=== PATIENT | female | born 1950 | race African-American/Black ===

== ENCOUNTER 2017-10-03 19:05 | Emergency (ER) | payer OTHER ==
--- NOTE | 2017-10-03 20:39 | PDOC ---
History of Present Illness - General History Source: Patient, Family Exam Limitations: No Limitations - History of Present Illness Initial Comments: 10/03/17 20:41 The patient is a 67 year old female with history of hypertension, hyperlipidemia , thyroid disease, brought into the ED by her nephew after ingesting a marijuana brownie this morning. Nephew at bedside reports he was given the brownie and the patient got into them. The patient subsequently became altered, prompting the nephew to bring her to the ED. No behavioral changes prior to marijuana consumption. No alcohol consumption tonight. She denies any physical complaints. <Evita Foster - Last Filed: 10/03/17 21:08> <Teri Gimenez - Last Filed: 10/04/17 00:22> - General Chief Complaint: Substance Abuse Stated Complaint: SUBSTANCE ABUSE Time Seen by Provider: 10/03/17 20:25 Past History <Evita Foster - Last Filed: 10/03/17 21:08> - Past Medical History Anemia: No Asthma: No Cancer: No Cardiac Disorders: No CVA: Yes (TIA 2+ YEARS AGO, residual imbalance) COPD: No CHF: No Dementia: No Diabetes: Yes GI Disorders: No Disorders: Yes (HEMATURIA - SUBSIDED ( WEEKS AGO)) HTN: Yes Hypercholesterolemia: Yes Liver Disease: No Seizures: No Thyroid Disease: Yes - Immunization History Immunization Up to Date: No - Suicide/Smoking/Psychosocial Hx Smoking History: Never smoked Have you smoked in the past 12 months: No Information on smoking cessation initiated: No Hx Alcohol Use: No Drug/Substance Use Hx: Yes (marijuana) Substance Use Type: None Hx Substance Use Treatment: No <Teri Gimenez - Last Filed: 10/04/17 00:22> - Past Medical History Allergies/Adverse Reactions: Allergies Allergy/AdvReac Type Severity Reaction Status Date / Time oxycodone Allergy Unknown Itching Verified 10/03/17 20:27 Home Medications: Ambulatory Orders Aspirin [ASA -] 81 mg PO DAILY 02/23/16 Atorvastatin Ca [Lipitor] 40 mg PO HS 02/23/16 Levothyroxine [Synthroid -] 25 mcg PO DAILY 02/23/16 Telmisartan/Hydrochlorothiazid [Telmisartan-Hctz 40-12.5 mg Tb] 0.5 tab PO DAILY 02/23/16 Meclizine HCl 25 mg PO BID PRN 03/17/16 Ciprofloxacin [Cipro -] 250 mg PO BID #14 tablet 03/19/16 Zolpidem Tartrate [Ambien] 10 mg PO HS 10/03/17 Cephalexin Monohydrate [Keflex -] 500 mg PO BID #14 capsule 10/04/17 Review of Systems - Review of Systems Able to Perform ROS?: Yes Comments:: 10/03/17 21:08 GENERAL/CONSTITUTIONAL: No fever or chills. No weakness. HEAD, EYES, EARS, NOSE AND THROAT: No change in vision. No ear pain or discharge. No sore throat. GASTROINTESTINAL: No nausea, vomiting, diarrhea or constipation. GENITOURINARY: No dysuria, frequency, or change in urination. CARDIOVASCULAR: No chest pain or shortness of breath. RESPIRATORY: No cough, wheezing, or hemoptysis. MUSCULOSKELETAL: No joint or muscle swelling or pain. No neck or back pain. SKIN: No rash NEUROLOGIC: +AMS. No headache, vertigo, loss of consciousness, or change in strength/sensation. ENDOCRINE: No increased thirst. No abnormal weight change. HEMATOLOGIC/LYMPHATIC: No anemia, easy bleeding, or history of blood clots. ALLERGIC/IMMUNOLOGIC: No hives or skin allergy. <Evita Foster - Last Filed: 10/03/17 21:08> *Physical Exam - Vital Signs Last Vital Signs Temp Pulse Resp BP Pulse Ox 97.6 F 97 H 18 150/84 96 10/03/17 20:22 10/03/17 20:22 10/03/17 20:22 10/03/17 20:22 10/03/17 20:22 - Physical Exam Comments: 10/03/17 21:08 Constitutional: Awake, alert, oriented. No acute distress. Head: Normocephalic. Atraumatic Eyes: PERRL. EOMI. Conjunctivae are not pale. ENT: Mucous membranes are moist and intact. Posterior pharynx without exudates or erythema. Uvula midline. Neck: Supple. Full ROM. No lymphadenopathy. Cardiovascular: Regular rate. Regular rhythm. S1, S2 regular. Distal pulses are 2+ and symmetric. Pulmonary/Chest: No evidence of respiratory distress. Clear to auscultation bilaterally No wheezing, rales or rhonchi. Abdominal: Soft and non-distended. There is no tenderness. No rebound, guarding or rigidity. No organomegaly. No palpable masses. Good bowel sounds. Back: No CVA tenderness. Musculoskeletal: No edema. No cyanosis. No clubbing. Full range of motion in all extremities. Nocalf tenderness. Radial/pedal pulses are intact and 2+ bilaterally Skin: Skin is warm and dry. No petechiae. No purpura. Neurological: Alert and oriented to person, place, and time. Cranial nerves II -XII are grossly intact. Normal speech. Strength is grossly symmetric. No sensory deficits. Psychiatric: Good eye contact. Normal interaction, affect and behavior. <Evita Foster - Last Filed: 10/03/17 21:08> - Vital Signs Last Vital Signs Temp Pulse Resp BP Pulse Ox 97.6 F 97 H 18 150/84 96 10/03/17 20:22 10/03/17 20:22 10/03/17 20:22 10/03/17 20:22 10/03/17 20:22 <Teri Gimenez - Last Filed: 10/04/17 00:22> ED Treatment Course - LABORATORY CBC & Chemistry Diagram: 10/03/17 22:00 10/03/17 22:00 <Teri Gimenez - Last Filed: 10/04/17 00:22> Medical Decision Making - Medical Decision Making 10/03/17 20:38 67yo female with ingestion of brownie with marijuana in it -dizziness -labs ekg ivf hydration -uds -etoh -monitor and reassess 10/03/17 23:37 pt denies dysuria, no recent f/c. feeling better. pt with bacteria in urine and elevated wbc, will give abx. pt agrees with the plan 10/04/17 00:18 pt drinking water. receiving iv abx and will d/c home on abx pt tolerated po stable for d/c to home. <Teri Gimenez - Last Filed: 10/04/17 00:22> *DC/Admit/Observation/Transfer - Attestations Scribe Attestion: 10/03/17 21:09 Documentation prepared by Evita Foster, acting as medical clerical assistant for Teri Gimenez DO. <Evita Foster Last Filed: 10/03/17 21:08> - Discharge Dispostion Admit: No - Attestations Physician Attestion: 10/04/17 00:22 I, Dr. Teri Gimenez DO, attest that this document has been prepared under my direction and personally reviewed by me in its entirety. I further attest, that it accurately reflects all work, treatment, procedures and medical decision -making performed by me. <Teri Gimenez - Last Filed: 10/04/17 00:22> Diagnosis at time of Disposition: Marijuana use, UTI (urinary tract infection), Dehydration, Hyperglycemia - Discharge Dispostion Disposition: HOME Condition at time of disposition: Stable - Prescriptions Prescriptions: Cephalexin Monohydrate [Keflex -] 500 mg PO BID #14 capsule - Referrals Referrals: Saleem Wilkins MD [Primary Care Provider] - - Patient Instructions Printed Discharge Instructions: DI for Urinary Tract Infection (UTI), DI for Hyperglycemia -- Adult, DI for Dehydration -- Adult, DI for Adverse Drug Reaction -- Other Additional Instructions: Please avoid marijuana. Please take all antibiotics as prescribed. Please drink plenty of fluids and monitor your glucose at home. Please make an appointment to follow up with your PMD in 2-3 days - Post Discharge Activity
[2017-10-03 21:25] VITALS: BP 150/84; PULSE 97; TEMP 97.6; BMI 24.6
[2017-10-03 22:21] LABS: BASOPHIL 0.5 % (0-2.0); MCH 26.3 pg (25.7-33.7); MCHC 33.7 g/dl (32.0-36.0); MEAN PLT VOLUME 9.2 fl (7.5-11.1); NEUTROPHILS 85.6 % (42.8-82.8); PLATELET COUNT 357 K/MM3 (134-434); RDW 16.9 % (11.6-15.6)
[2017-10-03 22:26] LABS: URINE APPEARANCE SLCLOUDY; URINE BILIRUBIN NEGATIVE (NEGATIVE); URINE BLOOD NEGATIVE (NEGATIVE); URINE COLOR LTYELLOW; URINE GLUCOSE (UA) 1+ (NEGATIVE); URINE KETONE NEGATIVE (NEGATIVE); URINE NITRITE NEGATIVE (NEGATIVE); URINE PROTEIN NEGATIVE (NEGATIVE); URINE UROBILINOGEN 4.0 E.U/dl mg/dL (0.2-1.0)
[2017-10-03 22:29] LABS: URINE LEUK ESTERASE 1+ (NEGATIVE)
[2017-10-03 22:32] LABS: URINE BACTERIA MANY /hpf (NONE SEEN); URINE MUCUS RARE; URINE RBC 2 /hpf (0-3); URINE WBC 7 /hpf (3-5)
[2017-10-03 22:44] LABS: ALBUMIN 3.9 g/dl (3.4-5.0); ALK PHOS 96 U/L (45-117); ANION GAP 8 (8-16); BILIRUBIN,TOTAL 0.8 mg/dL (0.2-1.0); CALCIUM 8.5 mg/dL (8.5-10.1); CO2 25 mmol/L (21-32); CREATININE 1.4 mg/dL (0.55-1.02); GLUCOSE,RANDOM 260 mg/dL (74-106); MAGNESIUM 2.1 mg/dL (1.8-2.4); SGOT/AST 21 U/L (15-37); SGPT/ALT 19 U/L (12-78)
[2017-10-03 22:53] LABS: URINE MARIJUANA THC POSITIVE ng/ml (CUTOFF=50)
[2017-10-03] MEDS ORDERED: cefTRIAXone 1 GM/50 ML BAG (PRE-DOCKED) IVPB ONE (23:38)
[2017-10-03] MEDS ORDERED: SODIUM CHLORIDE 0.9% 1000 ML INFUS.BAG IV ONE (23:38)
[2017-10-03 23:50] LABS: ANISOCYTOSIS 1+; HYPOCHROMIA 1+; POIKILOCYTOSIS 1+
[2017-10-03 23:51] LABS: SPHEROCYTE 1+; TARGET CELLS FEW
[2017-10-04] MEDS ORDERED: CEFTRIAXONE 1 GM/50 ML BAG ONE (00:03)
[2017-10-04 13:05] LABS: URINE LEUK ESTERASE 1+ (NEGATIVE)
== END 2017-10-04 00:54 | disposition home or self-care (01) ==
LOC: JER 19:05
DX: F12.10 Cannabis abuse, uncomplicated (principal); N39.0 Urinary tract infection, site not specified; E86.0 Dehydration; E78.5 Hyperlipidemia, unspecified; E03.9 Hypothyroidism, unspecified; Z86.73 Personal history of transient ischemic attack (TIA), and cerebral infarction without residual deficits; I69.893 Ataxia following other cerebrovascular disease
CPT/HCPCS: 36415; 80053; 80307; 81003; 81015; 83735; 85025; 99284-25

== ENCOUNTER 2020-09-06 10:19 | Inpatient (IN) | payer OTHER ==
[2020-09-06] MEDS ORDERED: SODIUM CHLORIDE 1,000 ML IV SCH (10:45)
[2020-09-06 11:19] LABS: BASO % 1.1 % (0-2.0); EOS % 1.1 % (0-4.5); HEMATOCRIT 35.3 % (32.4-45.2); HEMOGLOBIN 11.9 GM/dL (10.7-15.3); LYMPH % 22.5 % (8-40); MCH 25.7 pg (25.7-33.7); MCHC 33.9 g/dl (32.0-36.0); MEAN CELL VOLUME 75.8 fl (80-96); MEAN PLT VOLUME 8.9 fl (7.5-11.1); MONO % 8.3 % (3.8-10.2); PLATELET COUNT 325 K/MM3 (134-434); RBC 4.65 M/mm3 (3.60-5.2); RDW 17.4 % (11.6-15.6); WHITE BLOOD COUNT 11.9 K/mm3 (4.0-10.0)
[2020-09-06 11:27] LABS: INR 1.03 (0.83-1.09); PROTHROMBIN TIME (PATIENT) 12.5 SEC (9.7-13.0)
[2020-09-06 11:29] LABS: ACTIVATED PTT 27.5 SECONDS (25.2-36.5)
[2020-09-06 11:46] LABS: CHLORIDE 107 mmol/L (98-107); CHOLESTEROL 156 mg/dL (50-200); SODIUM 141 mmol/L (136-145); TRIGLYCERIDES 82 mg/dL (0-150)
[2020-09-06 11:47] LABS: CALCIUM 9.5 mg/dL (8.5-10.1); LDL CHOLESTEROL (ONLY SJRH) 98 mg/dL (5-100)
[2020-09-06 11:48] LABS: ALBUMIN 4.1 g/dl (3.4-5.0); ANION GAP 7 MMOL/L (8-16); BLOOD UREA NITROGEN 12.9 mg/dL (7-18); CO2 27 mmol/L (21-32); GLUCOSE,RANDOM 182 mg/dL (74-106)
[2020-09-06 11:49] LABS: HDL CHOLESTEROL 55 mg/dL (40-60)
[2020-09-06 11:51] LABS: CREATININE 1.3 mg/dL (0.55-1.3); SGOT/AST 25 U/L (15-37); SGPT/ALT 22 U/L (13-61)
[2020-09-06 11:53] LABS: TOT PROT 8.2 g/dl (6.4-8.2)
[2020-09-06 11:54] LABS: ALK PHOS 88 U/L (45-117)
[2020-09-06] MEDS ORDERED: ATORVASTATIN CA 40 MG TABLET (FP) PO ONE (12:27)
[2020-09-06] MEDS ORDERED: ATORVASTATIN CA 40 MG TABLET (FP) ONE (12:52)
[2020-09-06 13:54] LABS: URINE APPEARANCE CLEAR; URINE BILIRUBIN NEGATIVE (NEGATIVE); URINE COLOR YELLOW; URINE GLUCOSE (UA) NEGATIVE (NEGATIVE); URINE KETONE NEGATIVE (NEGATIVE); URINE LEUK ESTERASE NEGATIVE (NEGATIVE); URINE NITRITE NEGATIVE (NEGATIVE); URINE PROTEIN TRACE (NEGATIVE)
[2020-09-07 02:40] VITALS: BMI 27.8
[2020-09-07] MEDS: LEVOTHYROXINE NA 25 MCG TABLET (FP) PO SCH (06:40)
[2020-09-07 07:39] LABS: POTASSIUM 4.1 mmol/L (3.5-5.1)
[2020-09-07 07:45] LABS: CALCIUM 9.2 mg/dL (8.5-10.1)
[2020-09-07 07:46] LABS: ALBUMIN 3.5 g/dl (3.4-5.0); BLOOD UREA NITROGEN 8.3 mg/dL (7-18)
[2020-09-07 07:49] LABS: CREATININE 0.9 mg/dL (0.55-1.3)
[2020-09-07 07:51] LABS: BILIRUBIN,TOTAL 1.1 mg/dL (0.2-1); TOT PROT 7.3 g/dl (6.4-8.2)
[2020-09-07 08:14] LABS: HEMATOCRIT 32.6 % (32.4-45.2); HEMOGLOBIN 11.2 GM/dL (10.7-15.3); MCH 26.3 pg (25.7-33.7); MCHC 34.3 g/dl (32.0-36.0); MEAN CELL VOLUME 76.7 fl (80-96); MEAN PLT VOLUME 9.3 fl (7.5-11.1); PLATELET COUNT 294 K/MM3 (134-434); RBC 4.25 M/mm3 (3.60-5.2); RDW 17.3 % (11.6-15.6); WHITE BLOOD COUNT 10.8 K/mm3 (4.0-10.0)
[2020-09-07] MEDS: HYDROCHLOROTHIAZIDE 12.5 MG CAPSULE (FP) PO SCH (09:31)
[2020-09-07] MEDS: metoPROLOL SUCCINATE 25 MG TAB.SR.24H (FP) PO SCH (09:31)
[2020-09-07] MEDS: amLODIPine BESYLATE 5 MG TABLET (FP) PO SCH (09:31)
[2020-09-07 10:06] LABS: ANISOCYTOSIS 1+; MACROCYTOSIS 0; PLATELET ESTIMATE NORMAL; TARGET CELLS 2+
[2020-09-08] MEDS: LEVOTHYROXINE NA 25 MCG TABLET (FP) PO SCH (06:20)
[2020-09-08] MEDS: metoPROLOL SUCCINATE 25 MG TAB.SR.24H (FP) PO SCH (09:45)
[2020-09-08] MEDS: HYDROCHLOROTHIAZIDE 12.5 MG CAPSULE (FP) PO SCH (09:45)
[2020-09-08] MEDS: amLODIPine BESYLATE 5 MG TABLET (FP) PO SCH (09:45)
[2020-09-08] MEDS: ASPIRIN COATED 81 MG TABLET.EC PO SCH (18:37)
[2020-09-09] MEDS: LEVOTHYROXINE NA 25 MCG TABLET (FP) PO SCH (06:07)
[2020-09-09 06:17] VITALS: TEMP 98.2
[2020-09-09] MEDS: metoPROLOL SUCCINATE 25 MG TAB.SR.24H (FP) PO SCH (10:06)
[2020-09-09] MEDS: amLODIPine BESYLATE 5 MG TABLET (FP) PO SCH (10:06)
[2020-09-09] MEDS: ASPIRIN COATED 81 MG TABLET.EC PO SCH (10:06)
[2020-09-09] MEDS: HYDROCHLOROTHIAZIDE 12.5 MG CAPSULE (FP) PO SCH (10:06)
[2020-09-09] MEDS ORDERED: SENNOSIDES 8.6MG TABLET (FP) PO ONE (10:15)
[2020-09-09 11:06] VITALS: BP 118/79; PULSE 90
== END 2020-09-09 13:23 | DRG 57 ==
LOC: JER 10:19 → JERBED 12:59 → J4W 21:41
PROVIDERS: ADMIT Internal Medicine; ATTEND Internal Medicine
DX: I69.398 Other sequelae of cerebral infarction (principal); I69.351 Hemiplegia and hemiparesis following cerebral infarction affecting right dominant side; R53.1 Weakness; I10 Essential (primary) hypertension; E03.9 Hypothyroidism, unspecified; I25.10 Atherosclerotic heart disease of native coronary artery without angina pectoris; H35.30 Unspecified macular degeneration; M54.16 Radiculopathy, lumbar region; M54.5 Low back pain; R42 Dizziness and giddiness; D57.1 Sickle-cell disease without crisis; W18.30XA Fall on same level, unspecified, initial encounter; Y92.488 Other paved roadways as the place of occurrence of the external cause; R29.703 NIHSS score 3
CPT/HCPCS: 36415; 70450-TC; 71045-TC-FY; 72125-TC; 80053; 80061; 81003; 82085; 82550; 82607; 82962; 82977; 83036; 83721; 84484; 85025; 85610; 85730; 86038; 86850; 86900; 86901; 93005; 93010; 93306-TC; 93880-TC; 97116-GP; 97162-GP; 99291; C9803; U0003

== ENCOUNTER 2020-12-16 16:26 | Inpatient (IN) | payer OTHER ==
[2020-12-16 16:46] VITALS: BMI 34.6
[2020-12-16] MEDS: SODIUM CHLORIDE 1,000 ML IV SCH (17:18)
[2020-12-16] MEDS ORDERED: ASPIRIN 81 MG CHEWABLE TABLETS PO ONE (17:26)
[2020-12-16 17:44] LABS: BASO % 0.2 % (0-2.0); EOS % 0.6 % (0-4.5); HEMATOCRIT 38.7 % (32.4-45.2); LYMPH % 22.8 % (8-40); MCH 26.4 pg (25.7-33.7); MCHC 33.5 g/dl (32.0-36.0); MEAN CELL VOLUME 78.7 fl (80-96); MEAN PLT VOLUME 9.3 fl (7.5-11.1); MONO % 6.4 % (3.8-10.2); PLATELET COUNT 381 K/MM3 (134-434); RBC 4.91 M/mm3 (3.60-5.2); RDW 17.3 % (11.6-15.6); WHITE BLOOD COUNT 14.9 K/mm3 (4.0-10.0)
[2020-12-16 17:51] LABS: INR 1.03 (0.83-1.09); PROTHROMBIN TIME (PATIENT) 12.4 SEC (9.7-13.0)
[2020-12-16 17:53] LABS: CHLORIDE 100 mmol/L (98-107); POTASSIUM 3.8 mmol/L (3.5-5.1); SODIUM 137 mmol/L (136-145)
[2020-12-16 17:54] LABS: ACTIVATED PTT 27.8 SECONDS (25.2-36.5); CALCIUM 10.2 mg/dL (8.5-10.1)
[2020-12-16 17:55] LABS: ALBUMIN 4.7 g/dl (3.4-5.0); ANION GAP 11 MMOL/L (8-16); BLOOD UREA NITROGEN 14.1 mg/dL (7-18); CO2 26 mmol/L (21-32); GLUCOSE,RANDOM 200 mg/dL (74-106)
[2020-12-16 17:58] LABS: CREATININE 1.1 mg/dL (0.55-1.3); SGOT/AST 26 U/L (15-37); SGPT/ALT 22 U/L (13-61)
[2020-12-16 17:59] LABS: BILIRUBIN,TOTAL 1.1 mg/dL (0.2-1); CHOLESTEROL 219 mg/dL (50-200); TOT PROT 9.5 g/dl (6.4-8.2); TRIGLYCERIDES 185 mg/dL (0-150)
[2020-12-16 18:01] LABS: ALK PHOS 100 U/L (45-117); HDL CHOLESTEROL 59 mg/dL (40-60); LDL CHOLESTEROL (ONLY SJRH) 127 mg/dL (5-100)
[2020-12-16] MEDS ORDERED: ASPIRIN 81 MG CHEWABLE TABLETS ONE (18:11)
[2020-12-16 18:54] LABS: EPI CELLS 33 /uL (0-25.1); HYALINE CASTS 0 /uL (0-3.1); PH,URINE 6.5 (5.0-8.0); URINE APPEARANCE CLEAR; URINE BACTERIA 1299 /uL (0-1359); URINE BILIRUBIN NEGATIVE (NEGATIVE); URINE COLOR YELLOW; URINE GLUCOSE (UA) NEGATIVE (NEGATIVE); URINE KETONE NEGATIVE (NEGATIVE); URINE LEUK ESTERASE TRACE (NEGATIVE); URINE NITRITE NEGATIVE (NEGATIVE); URINE PROTEIN 2+ (NEGATIVE); URINE RBC 12 /uL (0-23.9); URINE WBC 42 /uL (0-25.8)
[2020-12-16] MEDS ORDERED: ATORVASTATIN CA 80 MG TABLET (FP) PO ONE (20:15)
[2020-12-16] MEDS ORDERED: ATORVASTATIN CA 80 MG TABLET (FP) ONE (20:31)
[2020-12-17] MEDS: metoPROLOL SUCCINATE 25 MG TAB.SR.24H (FP) PO SCH (09:31)
[2020-12-17] MEDS: LEVOTHYROXINE NA 25 MCG TABLET (FP) PO SCH (09:31)
[2020-12-17] MEDS: ENOXAPARIN NA (PORCINE) 40 MG/0.4 ML DISP.SYRIN SQ SCH (09:31)
[2020-12-17] MEDS: ASPIRIN COATED 81 MG TABLET.EC PO SCH (09:32)
[2020-12-17] MEDS: SODIUM CHLORIDE 1,000 ML IV SCH (16:45)
[2020-12-17] MEDS: ATORVASTATIN CA 40 MG TABLET (FP) PO SCH (22:47)
[2020-12-18] MEDS: LEVOTHYROXINE NA 25 MCG TABLET (FP) PO SCH (06:06)
[2020-12-18 08:51] LABS: BASO % 0.9 % (0-2.0); EOS % 2.8 % (0-4.5); HEMATOCRIT 32.3 % (32.4-45.2); HEMOGLOBIN 11.4 GM/dL (10.7-15.3); LYMPH % 32.7 % (8-40); MCH 27.7 pg (25.7-33.7); MCHC 35.2 g/dl (32.0-36.0); MEAN CELL VOLUME 78.7 fl (80-96); MEAN PLT VOLUME 9.2 fl (7.5-11.1); MONO % 9.7 % (3.8-10.2); NEUT % 53.9 % (42.8-82.8); PLATELET COUNT 315 K/MM3 (134-434); RDW 17.4 % (11.6-15.6); WHITE BLOOD COUNT 13.1 K/mm3 (4.0-10.0)
[2020-12-18 09:06] LABS: POTASSIUM 4.2 mmol/L (3.5-5.1)
[2020-12-18 09:11] LABS: CALCIUM 9.1 mg/dL (8.5-10.1)
[2020-12-18 09:12] LABS: BLOOD UREA NITROGEN 13.6 mg/dL (7-18)
[2020-12-18 09:45] LABS: ALBUMIN 3.6 g/dl (3.4-5.0); TOT PROT 7.3 g/dl (6.4-8.2)
[2020-12-18] MEDS: ASPIRIN COATED 81 MG TABLET.EC PO SCH (09:46)
[2020-12-18] MEDS: LISINOPRIL 5 MG TABLET PO SCH (09:46)
[2020-12-18] MEDS: metoPROLOL SUCCINATE 25 MG TAB.SR.24H (FP) PO SCH (09:46)
[2020-12-18] MEDS: CLOPIDOGREL BISULFATE 75 MG TABLET (FP) PO SCH (09:46)
[2020-12-18] MEDS: ENOXAPARIN NA (PORCINE) 40 MG/0.4 ML DISP.SYRIN SQ SCH (09:46)
[2020-12-18] MEDS: SODIUM CHLORIDE 1,000 ML IV SCH (16:45)
[2020-12-18] MEDS: ATORVASTATIN CA 40 MG TABLET (FP) PO SCH (22:46)
[2020-12-19] MEDS: LEVOTHYROXINE NA 25 MCG TABLET (FP) PO SCH (06:38)
[2020-12-19 08:17] LABS: BASO % 0.7 % (0-2.0); EOS % 4.3 % (0-4.5); HEMATOCRIT 31.6 % (32.4-45.2); HEMOGLOBIN 10.7 GM/dL (10.7-15.3); LYMPH % 31.1 % (8-40); MCH 26.8 pg (25.7-33.7); MCHC 33.9 g/dl (32.0-36.0); MEAN CELL VOLUME 78.9 fl (80-96); MEAN PLT VOLUME 8.9 fl (7.5-11.1); MONO % 11.5 % (3.8-10.2); NEUT % 52.4 % (42.8-82.8); PLATELET COUNT 318 K/MM3 (134-434); RBC 4.01 M/mm3 (3.60-5.2); RDW 17.5 % (11.6-15.6); WHITE BLOOD COUNT 13.3 K/mm3 (4.0-10.0)
[2020-12-19 08:38] LABS: POTASSIUM 4.2 mmol/L (3.5-5.1)
[2020-12-19 08:46] LABS: ALBUMIN 3.3 g/dl (3.4-5.0); CALCIUM 8.9 mg/dL (8.5-10.1)
[2020-12-19 08:47] LABS: BLOOD UREA NITROGEN 12.6 mg/dL (7-18)
[2020-12-19 08:51] LABS: BILIRUBIN,TOTAL 0.8 mg/dL (0.2-1); TOT PROT 6.7 g/dl (6.4-8.2)
[2020-12-19] MEDS: CLOPIDOGREL BISULFATE 75 MG TABLET (FP) PO SCH (09:14)
[2020-12-19] MEDS: ASPIRIN COATED 81 MG TABLET.EC PO SCH (09:14)
[2020-12-19] MEDS: LISINOPRIL 5 MG TABLET PO SCH (09:14)
[2020-12-19] MEDS: metoPROLOL SUCCINATE 25 MG TAB.SR.24H (FP) PO SCH (09:14)
[2020-12-19] MEDS: ENOXAPARIN NA (PORCINE) 40 MG/0.4 ML DISP.SYRIN SQ SCH (09:15)
[2020-12-19] MEDS: ATORVASTATIN CA 40 MG TABLET (FP) PO SCH (20:59)
[2020-12-19] MEDS: SODIUM CHLORIDE 1,000 ML IV SCH (20:59)
[2020-12-20] MEDS: LEVOTHYROXINE NA 25 MCG TABLET (FP) PO SCH (06:29)
[2020-12-20] MEDS ORDERED: PT OWN MED DRAWER 7, Y5N ONE (09:19)
[2020-12-20] MEDS: ASPIRIN 325 MG TABLET PO SCH (11:07)
[2020-12-20] MEDS: ENOXAPARIN NA (PORCINE) 40 MG/0.4 ML DISP.SYRIN SQ SCH (11:07)
[2020-12-20] MEDS: LISINOPRIL 5 MG TABLET PO SCH (11:08)
[2020-12-20] MEDS: CLOPIDOGREL BISULFATE 75 MG TABLET (FP) PO SCH (11:08)
[2020-12-20] MEDS: metoPROLOL SUCCINATE 25 MG TAB.SR.24H (FP) PO SCH (11:08)
[2020-12-20] MEDS: SODIUM CHLORIDE 1,000 ML IV SCH (22:12)
[2020-12-20] MEDS: ATORVASTATIN CA 40 MG TABLET (FP) PO SCH (22:14)
[2020-12-21] MEDS: LEVOTHYROXINE NA 25 MCG TABLET (FP) PO SCH (06:29)
[2020-12-21 07:31] LABS: EOS % 5.6 % (0-4.5); HEMATOCRIT 30.2 % (32.4-45.2); HEMOGLOBIN 10.4 GM/dL (10.7-15.3); LYMPH % 29.3 % (8-40); MCH 27.3 pg (25.7-33.7); MCHC 34.4 g/dl (32.0-36.0); MEAN CELL VOLUME 79.3 fl (80-96); MEAN PLT VOLUME 8.9 fl (7.5-11.1); MONO % 10.5 % (3.8-10.2); NEUT % 53.6 % (42.8-82.8); PLATELET COUNT 312 K/MM3 (134-434); RBC 3.81 M/mm3 (3.60-5.2); RDW 17.3 % (11.6-15.6); WHITE BLOOD COUNT 12.2 K/mm3 (4.0-10.0)
[2020-12-21 07:44] LABS: POTASSIUM 4.3 mmol/L (3.5-5.1)
[2020-12-21 07:49] LABS: BLOOD UREA NITROGEN 13.7 mg/dL (7-18)
[2020-12-21 07:50] LABS: ALBUMIN 3.4 g/dl (3.4-5.0)
[2020-12-21 07:53] LABS: BILIRUBIN,TOTAL 0.8 mg/dL (0.2-1); CREATININE 0.9 mg/dL (0.55-1.3)
[2020-12-21] MEDS: ENOXAPARIN NA (PORCINE) 40 MG/0.4 ML DISP.SYRIN SQ SCH (09:27)
[2020-12-21] MEDS: LISINOPRIL 5 MG TABLET PO SCH (09:28)
[2020-12-21] MEDS: metoPROLOL SUCCINATE 25 MG TAB.SR.24H (FP) PO SCH (09:28)
[2020-12-21] MEDS: CLOPIDOGREL BISULFATE 75 MG TABLET (FP) PO SCH (09:28)
[2020-12-21] MEDS: ASPIRIN 325 MG TABLET PO SCH (09:28)
[2020-12-21 14:39] VITALS: BP 142/75; PULSE 71; TEMP 97.6
== END 2020-12-21 16:28 | disposition home health service (06) | DRG 65 ==
LOC: JER 16:26 → JERBED 17:56 → J4W 21:08
PROVIDERS: ADMIT Internal Medicine; ATTEND Internal Medicine
DX: I63.9 Cerebral infarction, unspecified (principal); G81.91 Hemiplegia, unspecified affecting right dominant side; I10 Essential (primary) hypertension; R73.9 Hyperglycemia, unspecified; E03.9 Hypothyroidism, unspecified; R47.01 Aphasia; E78.5 Hyperlipidemia, unspecified; I25.119 Atherosclerotic heart disease of native coronary artery with unspecified angina pectoris; D72.829 Elevated white blood cell count, unspecified
CPT/HCPCS: 36415; 70450-TC; 70551-TC; 71045-TC-FY; 80053; 80061; 81003; 82550; 82962; 83090; 83721; 84443; 84484; 85025; 85610; 85730; 86850; 86900; 86901; 93005; 93010; 93306-TC; 93880-TC; 97116-GP; 97162-GP; 99285-25; C9803; U0003

== ENCOUNTER 2021-11-03 11:24 | Inpatient (IN) | payer OTHER ==
[2021-11-03] MEDS ORDERED: ACETAMINOPHEN 1000 MG/100 ML BAG IVPB ONE (12:19)
[2021-11-03] MEDS ORDERED: SODIUM CHLORIDE 0.9% 500 ML INFUS.BAG IV ONE (12:19)
[2021-11-03] MEDS ORDERED: AZITHROMYCIN IVPB 500 MG in DEXTROSE 5%-WATER - 250 ML IVPB ONE (12:26)
[2021-11-03] MEDS ORDERED: ACETAMINOPHEN INJECTION 100 ML IVPB ONE (12:58)
[2021-11-03] MEDS ORDERED: AZITHROMYCIN IVPB 500 MG/250 ML BAG IVPB ONE (12:58)
[2021-11-03 13:38] LABS: HEMATOCRIT 32.6 % (32.4-45.2); HEMOGLOBIN 10.6 GM/dL (10.7-15.3); MCHC 32.6 g/dl (32.0-36.0); MEAN CELL VOLUME 76.7 fl (80-96); MEAN PLT VOLUME 9.3 fl (7.5-11.1); RBC 4.25 M/mm3 (3.60-5.2); RDW 18.3 % (11.6-15.6)
[2021-11-03 13:50] LABS: PLATELET COUNT 323 10^3/uL (134-434)
[2021-11-03 13:52] LABS: INR 1.08 (0.83-1.09); PROTHROMBIN TIME (PATIENT) 12.4 SEC (9.7-13.0)
[2021-11-03 13:55] LABS: ACTIVATED PTT 21.6 SECONDS (25.2-36.5)
[2021-11-03 14:04] LABS: CHLORIDE 107 mmol/L (98-107); SODIUM 140 mmol/L (136-145)
[2021-11-03 14:06] LABS: CALCIUM 9.2 mg/dL (8.5-10.1)
[2021-11-03 14:07] LABS: ALBUMIN 2.9 g/dl (3.4-5.0); ANION GAP 8 MMOL/L (8-16); BLOOD UREA NITROGEN 22.6 mg/dL (7-18); CO2 24 mmol/L (21-32); GLUCOSE,RANDOM 157 mg/dL (74-106)
[2021-11-03 14:08] LABS: ANISOCYTOSIS 3+; MACROCYTOSIS 0; PLATELET ESTIMATE NORMAL; SICKELED CELLS 1+; TARGET CELLS 3+
[2021-11-03 14:10] LABS: CREATININE 1.8 mg/dL (0.55-1.3); SGOT/AST 40 U/L (15-37); SGPT/ALT 23 U/L (13-61)
[2021-11-03 14:11] LABS: TOT PROT 8.2 g/dl (6.4-8.2)
[2021-11-03 14:12] LABS: BILIRUBIN,TOTAL 2.7 mg/dL (0.2-1)
[2021-11-03 14:13] LABS: ALK PHOS 120 U/L (45-117)
[2021-11-03 14:15] LABS: LACTIC ACID 2.1 mmol/L (0.4-2.0)
[2021-11-03 15:12] LABS: VENOUS BASE EXCESS -4.4 mmol/L (-2-2); VENOUS O2 SATURATION 51.9 % (70-80); VENOUS PCO2 37.4 mmHg (38-52); VENOUS PH 7.359 (7.310-7.410)
[2021-11-03 16:52] LABS: EPI CELLS 33 /uL (0-25.1); HYALINE CASTS 5 /uL (0-3.1); PH,URINE 6.5 (5.0-8.0); URINE APPEARANCE TURBID; URINE BACTERIA 1664 /uL (0-1359); URINE BILIRUBIN 1+ (NEGATIVE); URINE COLOR DK YELLOW; URINE GLUCOSE (UA) NEGATIVE (NEGATIVE); URINE KETONE NEGATIVE (NEGATIVE); URINE LEUK ESTERASE 2+ (NEGATIVE); URINE NITRITE POSITIVE (NEGATIVE); URINE PROTEIN 4+ (NEGATIVE); URINE RBC 77 /uL (0-23.9); URINE WBC 5175 /uL (0-25.8)
[2021-11-03] MEDS ORDERED: ATORVASTATIN CA 40 MG TABLET (FP) ONE (21:07)
[2021-11-03] MEDS ORDERED: CEFTRIAXONE 1 GM/50 ML BAG ONE (21:07)
[2021-11-03] MEDS: CEFTRIAXONE 1 GM in DEXTROSE 5%-WATER - 50 ML IVPB SCH (21:17)
[2021-11-03] MEDS: ATORVASTATIN CA 40 MG TABLET (FP) PO SCH (21:17)
[2021-11-04] MEDS: LEVOTHYROXINE NA 25 MCG TABLET (FP) PO SCH ×2 (07:06→07:23)
[2021-11-04] MEDS ORDERED: cefTRIAXone SODIUM 1 GM VIAL ONE (08:54)
[2021-11-04] MEDS ORDERED: DEXTROSE 5%-WATER - 50 ML IVPB ONE (08:54)
[2021-11-04] MEDS: ENOXAPARIN NA (PORCINE) 40 MG/0.4 ML DISP.SYRIN SQ SCH (09:02)
[2021-11-04] MEDS: ASPIRIN COATED 81 MG TABLET.EC PO SCH (09:02)
[2021-11-04] MEDS: CLOPIDOGREL BISULFATE 75 MG TABLET (FP) PO SCH (09:02)
[2021-11-04] MEDS: metoPROLOL SUCCINATE 25 MG TAB.SR.24H (FP) PO SCH (09:02)
[2021-11-04] MEDS: LISINOPRIL 5 MG TABLET PO SCH (09:02)
[2021-11-04] MEDS: CEFTRIAXONE 1 GM in DEXTROSE 5%-WATER - 50 ML IVPB SCH (09:03)
[2021-11-04 09:41] LABS: HEMATOCRIT 27.7 % (32.4-45.2); HEMOGLOBIN 9.1 GM/dL (10.7-15.3); MCH 25.3 pg (25.7-33.7); MCHC 32.8 g/dl (32.0-36.0); MEAN CELL VOLUME 77.2 fl (80-96); MEAN PLT VOLUME 9.1 fl (7.5-11.1); PLATELET COUNT 343 10^3/uL (134-434); RBC 3.59 M/mm3 (3.60-5.2); RDW 18.1 % (11.6-15.6); WHITE BLOOD COUNT 20.1 K/mm3 (4.0-10.0)
[2021-11-04 09:54] LABS: CALCIUM 8.3 mg/dL (8.5-10.1)
[2021-11-04 09:55] LABS: BLOOD UREA NITROGEN 21.2 mg/dL (7-18)
[2021-11-04 09:57] LABS: CREATININE 1.5 mg/dL (0.55-1.3)
[2021-11-04 09:58] LABS: BILIRUBIN,TOTAL 1.6 mg/dL (0.2-1)
[2021-11-04 09:59] LABS: TOT PROT 6.4 g/dl (6.4-8.2)
[2021-11-04] MEDS ORDERED: ENOXAPARIN NA (PORCINE) 40 MG/0.4 ML DISP.SYRIN SQ SCH (10:00)
[2021-11-04 10:04] LABS: ALBUMIN 2.2 g/dl (3.4-5.0)
[2021-11-04] MEDS: AZITHROMYCIN IVPB 250 MG in DEXTROSE 5%-WATER - 250 ML IVPB SCH (10:05)
[2021-11-04 12:29] LABS: ANISOCYTOSIS 2+; MACROCYTOSIS 2+; PLATELET ESTIMATE NORMAL; TARGET CELLS 2+
[2021-11-04] MEDS: ATORVASTATIN CA 40 MG TABLET (FP) PO SCH (22:57)
[2021-11-05] MEDS: LEVOTHYROXINE NA 25 MCG TABLET (FP) PO SCH (06:24)
[2021-11-05 09:35] LABS: HEMATOCRIT 29.9 % (32.4-45.2); HEMOGLOBIN 9.6 GM/dL (10.7-15.3); MCH 24.9 pg (25.7-33.7); MCHC 32.2 g/dl (32.0-36.0); MEAN CELL VOLUME 77.2 fl (80-96); MEAN PLT VOLUME 9.2 fl (7.5-11.1); PLATELET COUNT 400 10^3/uL (134-434); RBC 3.87 M/mm3 (3.60-5.2); RDW 18.2 % (11.6-15.6); WHITE BLOOD COUNT 22.6 K/mm3 (4.0-10.0)
[2021-11-05] MEDS ORDERED: DEXTROSE 5%-WATER - 50 ML IVPB ONE (10:04)
[2021-11-05] MEDS ORDERED: cefTRIAXone SODIUM 1 GM VIAL ONE (10:04)
[2021-11-05] MEDS: CLOPIDOGREL BISULFATE 75 MG TABLET (FP) PO SCH (10:08)
[2021-11-05] MEDS: ASPIRIN COATED 81 MG TABLET.EC PO SCH (10:08)
[2021-11-05] MEDS: LISINOPRIL 5 MG TABLET PO SCH (10:08)
[2021-11-05] MEDS: ENOXAPARIN NA (PORCINE) 40 MG/0.4 ML DISP.SYRIN SQ SCH (10:08)
[2021-11-05] MEDS: metoPROLOL SUCCINATE 25 MG TAB.SR.24H (FP) PO SCH (10:08)
[2021-11-05 10:09] LABS: CALCIUM 8.7 mg/dL (8.5-10.1)
[2021-11-05] MEDS: CEFTRIAXONE 1 GM in DEXTROSE 5%-WATER - 50 ML IVPB SCH (10:09)
[2021-11-05 10:10] LABS: ALBUMIN 2.1 g/dl (3.4-5.0); BLOOD UREA NITROGEN 18.9 mg/dL (7-18)
[2021-11-05 10:13] LABS: CREATININE 1.5 mg/dL (0.55-1.3)
[2021-11-05 10:15] LABS: BILIRUBIN,TOTAL 1.3 mg/dL (0.2-1); TOT PROT 6.5 g/dl (6.4-8.2)
[2021-11-05] MEDS: AZITHROMYCIN IVPB 250 MG in DEXTROSE 5%-WATER - 250 ML IVPB SCH (10:55)
[2021-11-05 12:07] LABS: ANISOCYTOSIS 3+; MACROCYTOSIS 1+; OVALOCYTE 2+; PLATELET ESTIMATE NORMAL; TARGET CELLS 3+
[2021-11-05 12:18] LABS: SICKELED CELLS 1+
[2021-11-05 12:44] VITALS: BMI 22.9
[2021-11-05] MEDS ORDERED: SODIUM CHLORIDE 0.45% 1,000 ML IV SCH (16:15)
[2021-11-05] MEDS: ATORVASTATIN CA 40 MG TABLET (FP) PO SCH (21:35)
[2021-11-06] MEDS: LEVOTHYROXINE NA 25 MCG TABLET (FP) PO SCH (06:28)
[2021-11-06] MEDS ORDERED: DEXTROSE 5%-WATER - 50 ML IVPB ONE (10:05)
[2021-11-06] MEDS ORDERED: cefTRIAXone SODIUM 1 GM VIAL ONE (10:05)
[2021-11-06] MEDS: CEFTRIAXONE 1 GM in DEXTROSE 5%-WATER - 50 ML IVPB SCH (10:20)
[2021-11-06] MEDS: ENOXAPARIN NA (PORCINE) 40 MG/0.4 ML DISP.SYRIN SQ SCH (10:23)
[2021-11-06] MEDS: LISINOPRIL 5 MG TABLET PO SCH (10:26)
[2021-11-06] MEDS: CLOPIDOGREL BISULFATE 75 MG TABLET (FP) PO SCH (10:26)
[2021-11-06] MEDS: ASPIRIN COATED 81 MG TABLET.EC PO SCH (10:26)
[2021-11-06] MEDS: metoPROLOL SUCCINATE 25 MG TAB.SR.24H (FP) PO SCH (10:26)
[2021-11-06] MEDS: AZITHROMYCIN IVPB 250 MG in DEXTROSE 5%-WATER - 250 ML IVPB SCH (11:57)
[2021-11-06 17:04] LABS: BASO % 0.4 % (0-2.0); EOS % 0.9 % (0-4.5); HEMATOCRIT 28.4 % (32.4-45.2); HEMOGLOBIN 9.4 GM/dL (10.7-15.3); LYMPH % 3.4 % (8-40); MCH 25.1 pg (25.7-33.7); MEAN CELL VOLUME 76.1 fl (80-96); MEAN PLT VOLUME 8.9 fl (7.5-11.1); MONO % 12.3 % (3.8-10.2); PLATELET COUNT 426 10^3/uL (134-434); RBC 3.73 M/mm3 (3.60-5.2); RDW 18.1 % (11.6-15.6); WHITE BLOOD COUNT 20.3 K/mm3 (4.0-10.0)
[2021-11-06 17:06] LABS: CALCIUM 8.5 mg/dL (8.5-10.1)
[2021-11-06 17:07] LABS: BLOOD UREA NITROGEN 19.9 mg/dL (7-18)
[2021-11-06 17:10] LABS: CREATININE 1.4 mg/dL (0.55-1.3)
[2021-11-06 17:11] LABS: BILIRUBIN,TOTAL 0.9 mg/dL (0.2-1); TOT PROT 6.7 g/dl (6.4-8.2)
[2021-11-06 20:59] LABS: ANISOCYTOSIS 2+; MACROCYTOSIS 1+; PLATELET ESTIMATE NORMAL; TARGET CELLS 2+
[2021-11-06] MEDS: ATORVASTATIN CA 40 MG TABLET (FP) PO SCH (22:45)
[2021-11-07] MEDS: LEVOTHYROXINE NA 25 MCG TABLET (FP) PO SCH (06:46)
[2021-11-07] MEDS ORDERED: cefTRIAXone SODIUM 1 GM VIAL ONE (10:26)
[2021-11-07] MEDS ORDERED: DEXTROSE 5%-WATER - 50 ML IVPB ONE (10:26)
[2021-11-07] MEDS: CEFTRIAXONE 1 GM in DEXTROSE 5%-WATER - 50 ML IVPB SCH (10:32)
[2021-11-07] MEDS: metoPROLOL SUCCINATE 25 MG TAB.SR.24H (FP) PO SCH (10:33)
[2021-11-07] MEDS: ASPIRIN COATED 81 MG TABLET.EC PO SCH (10:33)
[2021-11-07] MEDS: ENOXAPARIN NA (PORCINE) 40 MG/0.4 ML DISP.SYRIN SQ SCH (10:33)
[2021-11-07] MEDS: CLOPIDOGREL BISULFATE 75 MG TABLET (FP) PO SCH (10:33)
[2021-11-07] MEDS: LISINOPRIL 5 MG TABLET PO SCH (10:33)
[2021-11-07 11:57] LABS: HEMATOCRIT 28.5 % (32.4-45.2); HEMOGLOBIN 9.3 GM/dL (10.7-15.3); MCH 24.8 pg (25.7-33.7); MCHC 32.5 g/dl (32.0-36.0); MEAN CELL VOLUME 76.4 fl (80-96); PLATELET COUNT 493 10^3/uL (134-434); RBC 3.73 M/mm3 (3.60-5.2); RDW 18.2 % (11.6-15.6); WHITE BLOOD COUNT 15.9 K/mm3 (4.0-10.0)
[2021-11-07] MEDS: AZITHROMYCIN IVPB 250 MG in DEXTROSE 5%-WATER - 250 ML IVPB SCH (12:31)
[2021-11-07 12:38] LABS: CREATININE 1.3 mg/dL (0.55-1.3)
[2021-11-07 12:39] LABS: TOT PROT 6.7 g/dl (6.4-8.2)
[2021-11-07 12:48] LABS: CALCIUM 8.7 mg/dL (8.5-10.1)
[2021-11-07 13:43] LABS: ANISOCYTOSIS 2+; MACROCYTOSIS 1+; PLATELET ESTIMATE INCREASED; TARGET CELLS 2+
[2021-11-07] MEDS: ATORVASTATIN CA 40 MG TABLET (FP) PO SCH (21:13)
[2021-11-08] MEDS: LEVOTHYROXINE NA 25 MCG TABLET (FP) PO SCH (06:17)
[2021-11-08] MEDS ORDERED: DEXTROSE 5%-WATER - 50 ML IVPB ONE (10:06)
[2021-11-08] MEDS ORDERED: cefTRIAXone SODIUM 1 GM VIAL ONE (10:06)
[2021-11-08] MEDS: ASPIRIN COATED 81 MG TABLET.EC PO SCH (10:08)
[2021-11-08] MEDS: metoPROLOL SUCCINATE 25 MG TAB.SR.24H (FP) PO SCH (10:08)
[2021-11-08] MEDS: CLOPIDOGREL BISULFATE 75 MG TABLET (FP) PO SCH (10:08)
[2021-11-08] MEDS: LISINOPRIL 5 MG TABLET PO SCH (10:08)
[2021-11-08] MEDS: CEFTRIAXONE 1 GM in DEXTROSE 5%-WATER - 50 ML IVPB SCH (10:09)
[2021-11-08] MEDS: ENOXAPARIN NA (PORCINE) 40 MG/0.4 ML DISP.SYRIN SQ SCH (10:09)
[2021-11-08] MEDS: AZITHROMYCIN IVPB 250 MG in DEXTROSE 5%-WATER - 250 ML IVPB SCH (10:50)
[2021-11-08] MEDS ORDERED: AMINO ACIDS 4.25%/D5W 1,000 ML IV SCH (22:30)
[2021-11-08] MEDS: ATORVASTATIN CA 40 MG TABLET (FP) PO SCH (22:37)
[2021-11-09] MEDS: LEVOTHYROXINE NA 25 MCG TABLET (FP) PO SCH (06:18)
[2021-11-09 10:06] LABS: BASO % 0.7 % (0-2.0); EOS % 1.4 % (0-4.5); HEMATOCRIT 24.3 % (32.4-45.2); HEMOGLOBIN 7.8 GM/dL (10.7-15.3); LYMPH % 10.2 % (8-40); MCH 24.7 pg (25.7-33.7); MCHC 32.3 g/dl (32.0-36.0); MEAN CELL VOLUME 76.6 fl (80-96); MEAN PLT VOLUME 9.2 fl (7.5-11.1); MONO % 8.8 % (3.8-10.2); NEUT % 78.9 % (42.8-82.8); PLATELET COUNT 491 10^3/uL (134-434); RBC 3.17 M/mm3 (3.60-5.2); RDW 18.2 % (11.6-15.6); WHITE BLOOD COUNT 14.1 K/mm3 (4.0-10.0)
[2021-11-09 10:23] LABS: CALCIUM 8.3 mg/dL (8.5-10.1)
[2021-11-09 10:24] LABS: ALBUMIN 1.8 g/dl (3.4-5.0); BLOOD UREA NITROGEN 19.2 mg/dL (7-18)
[2021-11-09 10:27] LABS: CREATININE 1.3 mg/dL (0.55-1.3)
[2021-11-09 10:28] LABS: BILIRUBIN,TOTAL 0.7 mg/dL (0.2-1); TOT PROT 6.2 g/dl (6.4-8.2)
[2021-11-09] MEDS ORDERED: cefTRIAXone SODIUM 1 GM VIAL ONE (12:18)
[2021-11-09] MEDS ORDERED: DEXTROSE 5%-WATER - 50 ML IVPB ONE (12:19)
[2021-11-09] MEDS: metoPROLOL SUCCINATE 25 MG TAB.SR.24H (FP) PO SCH (12:22)
[2021-11-09] MEDS: LISINOPRIL 5 MG TABLET PO SCH (12:22)
[2021-11-09] MEDS: CEFTRIAXONE 1 GM in DEXTROSE 5%-WATER - 50 ML IVPB SCH (12:22)
[2021-11-09] MEDS: ENOXAPARIN NA (PORCINE) 40 MG/0.4 ML DISP.SYRIN SQ SCH (12:23)
[2021-11-09] MEDS: AMINO ACIDS 4.25%/D5W 1,000 ML IV SCH (15:32)
[2021-11-09] MEDS: ATORVASTATIN CA 40 MG TABLET (FP) PO SCH (21:58)
[2021-11-10] MEDS: LEVOTHYROXINE NA 25 MCG TABLET (FP) PO SCH (06:06)
[2021-11-10] MEDS: metoPROLOL SUCCINATE 25 MG TAB.SR.24H (FP) PO SCH (09:20)
[2021-11-10] MEDS: LISINOPRIL 5 MG TABLET PO SCH (09:20)
[2021-11-10] MEDS ORDERED: DEXTROSE 5%-WATER - 50 ML IVPB ONE (09:36)
[2021-11-10] MEDS ORDERED: cefTRIAXone SODIUM 1 GM VIAL ONE (09:36)
[2021-11-10] MEDS: CEFTRIAXONE 1 GM in DEXTROSE 5%-WATER - 50 ML IVPB SCH (09:47)
[2021-11-10] MEDS: AMINO ACIDS 4.25%/D5W 1,000 ML IV SCH (11:35)
[2021-11-10] MEDS ORDERED: FAT EMULSION/OLIVE/SOY/PHOSPHO 250 ML IV SCH (22:00)
[2021-11-10] MEDS ORDERED: FAT EMULSION/OLIVE/SOY (CLINOLIPID) 250 ML EMULSION IV SCH (22:00)
[2021-11-11] MEDS: ATORVASTATIN CA 40 MG TABLET (FP) PO SCH ×2 (00:24→21:27)
[2021-11-11] MEDS: AMINO ACIDS 4.25%/D5W 1,000 ML IV SCH ×3 (04:32→17:09)
[2021-11-11] MEDS: LEVOTHYROXINE NA 25 MCG TABLET (FP) PO SCH (06:09)
[2021-11-11] MEDS: LISINOPRIL 5 MG TABLET PO SCH (09:11)
[2021-11-11] MEDS: metoPROLOL SUCCINATE 25 MG TAB.SR.24H (FP) PO SCH (09:11)
[2021-11-11] MEDS ORDERED: cefTRIAXone SODIUM 1 GM VIAL ONE (09:20)
[2021-11-11] MEDS ORDERED: DEXTROSE 5%-WATER - 50 ML IVPB ONE (09:20)
[2021-11-11] MEDS: CEFTRIAXONE 1 GM in DEXTROSE 5%-WATER - 50 ML IVPB SCH (09:21)
[2021-11-11] MEDS: ENOXAPARIN NA (PORCINE) 40 MG/0.4 ML DISP.SYRIN SQ SCH (09:22)
[2021-11-11 10:31] LABS: HEMATOCRIT 29.5 % (32.4-45.2); HEMOGLOBIN 9.8 GM/dL (10.7-15.3); MCH 25.6 pg (25.7-33.7); MCHC 33.2 g/dl (32.0-36.0); MEAN CELL VOLUME 77.1 fl (80-96); MEAN PLT VOLUME 8.9 fl (7.5-11.1); PLATELET COUNT 482 10^3/uL (134-434); RBC 3.82 M/mm3 (3.60-5.2); RDW 19.1 % (11.6-15.6); WHITE BLOOD COUNT 17.6 K/mm3 (4.0-10.0)
[2021-11-11 11:11] LABS: CALCIUM 8.1 mg/dL (8.5-10.1)
[2021-11-11 11:12] LABS: ALBUMIN 1.9 g/dl (3.4-5.0); BLOOD UREA NITROGEN 26.7 mg/dL (7-18)
[2021-11-11 11:15] LABS: CREATININE 1.2 mg/dL (0.55-1.3)
[2021-11-11 11:16] LABS: BILIRUBIN,TOTAL 0.7 mg/dL (0.2-1); TOT PROT 6.4 g/dl (6.4-8.2)
[2021-11-11 11:24] LABS: ANISOCYTOSIS 1+; MACROCYTOSIS 1+; OVALOCYTE 2+; PLATELET ESTIMATE NORMAL; TARGET CELLS 2+
[2021-11-12] MEDS: LEVOTHYROXINE NA 25 MCG TABLET (FP) PO SCH (06:18)
[2021-11-12] MEDS: metoPROLOL SUCCINATE 25 MG TAB.SR.24H (FP) PO SCH (09:29)
[2021-11-12] MEDS: LISINOPRIL 5 MG TABLET PO SCH (09:29)
[2021-11-12] MEDS ORDERED: cefTRIAXone SODIUM 1 GM VIAL ONE (09:55)
[2021-11-12] MEDS ORDERED: DEXTROSE 5%-WATER - 50 ML IVPB ONE (09:55)
[2021-11-12] MEDS: CEFTRIAXONE 1 GM in DEXTROSE 5%-WATER - 50 ML IVPB SCH (09:58)
[2021-11-12] MEDS: AMINO ACIDS 4.25%/D5W 1,000 ML IV SCH ×2 (09:58→12:17)
[2021-11-12] MEDS: ENOXAPARIN NA (PORCINE) 40 MG/0.4 ML DISP.SYRIN SQ SCH (10:00)
[2021-11-12 11:20] LABS: HEMATOCRIT 33.2 % (32.4-45.2); HEMOGLOBIN 10.8 GM/dL (10.7-15.3); MCH 25.2 pg (25.7-33.7); MCHC 32.7 g/dl (32.0-36.0); MEAN PLT VOLUME 8.8 fl (7.5-11.1); PLATELET COUNT 521 10^3/uL (134-434); RBC 4.31 M/mm3 (3.60-5.2); RDW 19.2 % (11.6-15.6); WHITE BLOOD COUNT 13.6 K/mm3 (4.0-10.0)
[2021-11-12 11:38] LABS: ALBUMIN 2.1 g/dl (3.4-5.0); CALCIUM 8.9 mg/dL (8.5-10.1)
[2021-11-12 11:39] LABS: BLOOD UREA NITROGEN 28.5 mg/dL (7-18)
[2021-11-12 11:41] LABS: CREATININE 1.2 mg/dL (0.55-1.3)
[2021-11-12 11:43] LABS: BILIRUBIN,TOTAL 0.6 mg/dL (0.2-1)
[2021-11-12 12:18] LABS: ANISOCYTOSIS 1+; MACROCYTOSIS 1+; PLATELET ESTIMATE INCREASED; TARGET CELLS 1+
[2021-11-12] MEDS: ATORVASTATIN CA 40 MG TABLET (FP) PO SCH (21:37)
[2021-11-12] MEDS: KCL 10 MEQ IVPB 10 MEQ/100 ML INFUS.BAG IVPB SCH ×2 (21:45→23:19)
[2021-11-13] MEDS: AMINO ACIDS 4.25%/D5W 1,000 ML IV SCH ×3 (03:03→18:34)
[2021-11-13] MEDS: LEVOTHYROXINE NA 25 MCG TABLET (FP) PO SCH (06:01)
[2021-11-13] MEDS ORDERED: cefTRIAXone SODIUM 1 GM VIAL ONE (08:51)
[2021-11-13] MEDS ORDERED: DEXTROSE 5%-WATER - 50 ML IVPB ONE (08:52)
[2021-11-13] MEDS: metoPROLOL SUCCINATE 25 MG TAB.SR.24H (FP) PO SCH (11:04)
[2021-11-13] MEDS: LISINOPRIL 5 MG TABLET PO SCH (11:04)
[2021-11-13] MEDS: CEFTRIAXONE 1 GM in DEXTROSE 5%-WATER - 50 ML IVPB SCH (11:05)
[2021-11-13] MEDS: ENOXAPARIN NA (PORCINE) 40 MG/0.4 ML DISP.SYRIN SQ SCH (11:06)
[2021-11-13 12:37] LABS: BASO % 0.8 % (0-2.0); EOS % 3.4 % (0-4.5); HEMATOCRIT 25.7 % (32.4-45.2); HEMOGLOBIN 8.2 GM/dL (10.7-15.3); LYMPH % 12.3 % (8-40); MCH 25.1 pg (25.7-33.7); MCHC 31.9 g/dl (32.0-36.0); MEAN CELL VOLUME 78.9 fl (80-96); MEAN PLT VOLUME 9.4 fl (7.5-11.1); NEUT % 74.5 % (42.8-82.8); PLATELET COUNT 381 10^3/uL (134-434); RBC 3.26 M/mm3 (3.60-5.2); RDW 19.7 % (11.6-15.6); WHITE BLOOD COUNT 11.1 K/mm3 (4.0-10.0)
[2021-11-13 15:26] LABS: HEMATOCRIT 29.1 % (32.4-45.2); HEMOGLOBIN 9.5 GM/dL (10.7-15.3); MCH 24.9 pg (25.7-33.7); MCHC 32.6 g/dl (32.0-36.0); MEAN CELL VOLUME 76.4 fl (80-96); MEAN PLT VOLUME 8.4 fl (7.5-11.1); PLATELET COUNT 488 10^3/uL (134-434); RBC 3.81 M/mm3 (3.60-5.2); RDW 19.6 % (11.6-15.6)
[2021-11-13 15:55] LABS: BLOOD UREA NITROGEN 27.8 mg/dL (7-18)
[2021-11-13 15:58] LABS: CREATININE 1.2 mg/dL (0.55-1.3)
[2021-11-13 15:59] LABS: BILIRUBIN,TOTAL 0.4 mg/dL (0.2-1); TOT PROT 6.6 g/dl (6.4-8.2)
[2021-11-13 16:05] LABS: ALBUMIN 2.1 g/dl (3.4-5.0); CALCIUM 8.9 mg/dL (8.5-10.1)
[2021-11-13] MEDS ORDERED: FAT EMULSION/OLIVE/SOY (CLINOLIPID) 250 ML EMULSION IV SCH (22:00)
[2021-11-13] MEDS: ATORVASTATIN CA 40 MG TABLET (FP) PO SCH (22:09)
[2021-11-13] MEDS: FAT EMULSION/OLIVE/SOY/PHOSPHO 250 ML IV SCH (22:09)
[2021-11-13] MEDS: KCL 10 MEQ IVPB 10 MEQ/100 ML INFUS.BAG IVPB SCH (23:18)
[2021-11-14] MEDS: KCL 10 MEQ IVPB 10 MEQ/100 ML INFUS.BAG IVPB SCH (01:25)
[2021-11-14] MEDS: LEVOTHYROXINE NA 25 MCG TABLET (FP) PO SCH (06:07)
[2021-11-14] MEDS ORDERED: DEXTROSE 5%-WATER - 50 ML IVPB ONE (09:17)
[2021-11-14] MEDS ORDERED: cefTRIAXone SODIUM 1 GM VIAL ONE (09:17)
[2021-11-14] MEDS: metoPROLOL SUCCINATE 25 MG TAB.SR.24H (FP) PO SCH (09:20)
[2021-11-14] MEDS: LISINOPRIL 5 MG TABLET PO SCH (09:20)
[2021-11-14] MEDS: CEFTRIAXONE 1 GM in DEXTROSE 5%-WATER - 50 ML IVPB SCH (09:20)
[2021-11-14] MEDS: AMINO ACIDS 4.25%/D5W 1,000 ML IV SCH ×3 (09:21→21:05)
[2021-11-14 09:26] LABS: CALCIUM 8.2 mg/dL (8.5-10.1)
[2021-11-14 09:27] LABS: BLOOD UREA NITROGEN 28.1 mg/dL (7-18); MAGNESIUM 1.6 mg/dL (1.8-2.4)
[2021-11-14 09:30] LABS: CREATININE 1.1 mg/dL (0.55-1.3); PHOSPHOROUS 1.9 mg/dL (2.5-4.9)
[2021-11-14 09:31] LABS: BILIRUBIN,TOTAL 0.6 mg/dL (0.2-1); TOT PROT 6.3 g/dl (6.4-8.2)
[2021-11-14] MEDS ORDERED: POTASSIUM PHOSPHATE 30 MM in SODIUM CHLORIDE 500 ML IVPB ONE (12:06)
[2021-11-14] MEDS ORDERED: MAGNESIUM SULF 50% (8.12 MEQ/2 ML-1 GM VIAL) IVPB ONE (12:07)
[2021-11-14] MEDS ORDERED: KCL 10 MEQ IVPB 10 MEQ/100 ML INFUS.BAG IVPB SCH (12:15)
[2021-11-14 20:29] LABS: BASO % 0.3 % (0-2.0); EOS % 3.2 % (0-4.5); HEMOGLOBIN 9.7 GM/dL (10.7-15.3); LYMPH % 21.4 % (8-40); MCH 24.7 pg (25.7-33.7); MCHC 32.1 g/dl (32.0-36.0); MEAN CELL VOLUME 76.8 fl (80-96); NEUT % 69.1 % (42.8-82.8); PLATELET COUNT 448 10^3/uL (134-434); RBC 3.91 M/mm3 (3.60-5.2); RDW 20.5 % (11.6-15.6)
[2021-11-14 20:36] LABS: ANISOCYTOSIS 1+; MACROCYTOSIS 1+
[2021-11-14] MEDS: ATORVASTATIN CA 40 MG TABLET (FP) PO SCH (21:06)
[2021-11-14] MEDS: FAT EMULSION/OLIVE/SOY/PHOSPHO 250 ML IV SCH (21:06)
[2021-11-15] MEDS: LEVOTHYROXINE NA 25 MCG TABLET (FP) PO SCH (06:22)
[2021-11-15] MEDS ORDERED: cefTRIAXone SODIUM 1 GM VIAL ONE (09:41)
[2021-11-15] MEDS ORDERED: DEXTROSE 5%-WATER - 50 ML IVPB ONE ×2 (09:42→17:25)
[2021-11-15] MEDS: CEFTRIAXONE 1 GM in DEXTROSE 5%-WATER - 50 ML IVPB SCH (09:43)
[2021-11-15] MEDS: LISINOPRIL 5 MG TABLET PO SCH (09:44)
[2021-11-15] MEDS: metoPROLOL SUCCINATE 25 MG TAB.SR.24H (FP) PO SCH (09:44)
[2021-11-15] MEDS: ENOXAPARIN NA (PORCINE) 40 MG/0.4 ML DISP.SYRIN SQ SCH (10:42)
[2021-11-15] MEDS: AMINO ACIDS 4.25%/D5W 1,000 ML IV SCH (14:14)
[2021-11-15 14:16] LABS: CALCIUM 8.2 mg/dL (8.5-10.1)
[2021-11-15 14:17] LABS: ALBUMIN 2.1 g/dl (3.4-5.0); BLOOD UREA NITROGEN 29.1 mg/dL (7-18); MAGNESIUM 2.2 mg/dL (1.8-2.4)
[2021-11-15 14:20] LABS: CREATININE 1.1 mg/dL (0.55-1.3); PHOSPHOROUS 2.9 mg/dL (2.5-4.9)
[2021-11-15 14:21] LABS: BILIRUBIN,TOTAL 0.4 mg/dL (0.2-1); TOT PROT 6.8 g/dl (6.4-8.2)
[2021-11-15] MEDS ORDERED: PIPERACILLIN/TAZOBACTAM 2.25 GM VIAL IVPB ONE (17:25)
[2021-11-15] MEDS: PIPERACILLIN/TAZOB 2.25 GM 2.25 GM in DEXTROSE 5%-WATER - 50 ML IVPB SCH (17:27)
[2021-11-15] MEDS: ATORVASTATIN CA 40 MG TABLET (FP) PO SCH (22:02)
[2021-11-15] MEDS: FAT EMULSION/OLIVE/SOY/PHOSPHO 250 ML IV SCH (22:02)
[2021-11-16] MEDS ORDERED: DEXTROSE 5%-WATER - 50 ML IVPB ONE ×3 (01:15→16:58)
[2021-11-16] MEDS ORDERED: PIPERACILLIN/TAZOBACTAM 2.25 GM VIAL IVPB ONE ×3 (01:15→16:58)
[2021-11-16] MEDS: PIPERACILLIN/TAZOB 2.25 GM 2.25 GM in DEXTROSE 5%-WATER - 50 ML IVPB SCH ×3 (01:19→17:29)
[2021-11-16] MEDS: LEVOTHYROXINE NA 25 MCG TABLET (FP) PO SCH (06:16)
[2021-11-16] MEDS: ENOXAPARIN NA (PORCINE) 40 MG/0.4 ML DISP.SYRIN SQ SCH (10:28)
[2021-11-16] MEDS: LISINOPRIL 5 MG TABLET PO SCH (10:31)
[2021-11-16] MEDS: metoPROLOL SUCCINATE 25 MG TAB.SR.24H (FP) PO SCH (10:31)
[2021-11-16] MEDS ORDERED: hydrALAZINE HCL 20 MG/ML VIAL IVPUSH PRN ×3 (12:38→15:42)
[2021-11-16 13:55] LABS: HEMATOCRIT 27.1 % (32.4-45.2); HEMOGLOBIN 8.7 GM/dL (10.7-15.3); MCH 24.5 pg (25.7-33.7); MCHC 31.9 g/dl (32.0-36.0); MEAN CELL VOLUME 76.7 fl (80-96); MEAN PLT VOLUME 9.4 fl (7.5-11.1); PLATELET COUNT 335 10^3/uL (134-434); RBC 3.53 M/mm3 (3.60-5.2); RDW 21.2 % (11.6-15.6); WHITE BLOOD COUNT 18.1 K/mm3 (4.0-10.0)
[2021-11-16] MEDS ORDERED: ENALAPRILAT DIHYDRATE 1.25 MG/1 ML VIAL IVPB ONE ×2 (14:00→15:42)
[2021-11-16 14:03] LABS: CALCIUM 8.4 mg/dL (8.5-10.1)
[2021-11-16 14:04] LABS: BLOOD UREA NITROGEN 27.5 mg/dL (7-18)
[2021-11-16 14:07] LABS: CREATININE 1.3 mg/dL (0.55-1.3); PHOSPHOROUS 2.9 mg/dL (2.5-4.9)
[2021-11-16 14:08] LABS: BILIRUBIN,TOTAL 0.6 mg/dL (0.2-1)
[2021-11-16 14:09] LABS: TOT PROT 6.7 g/dl (6.4-8.2)
[2021-11-16 14:51] LABS: ANISOCYTOSIS 2+; MACROCYTOSIS 1+; OVALOCYTE 1+; PLATELET ESTIMATE NORMAL; TARGET CELLS 1+
[2021-11-16] MEDS ORDERED: FAT EMULSION/OLIVE/SOY/PHOSPHO 250 ML IV SCH (22:00)
[2021-11-16] MEDS: ATORVASTATIN CA 40 MG TABLET (FP) PO SCH (23:33)
[2021-11-17] MEDS: ACETAMINOPHEN 1000 MG/100 ML BAG IVPB PRN ×2 (00:21→22:08)
[2021-11-17] MEDS ORDERED: PIPERACILLIN/TAZOBACTAM 2.25 GM VIAL IVPB ONE ×3 (03:01→17:30)
[2021-11-17] MEDS ORDERED: DEXTROSE 5%-WATER - 50 ML IVPB ONE ×3 (03:02→17:30)
[2021-11-17] MEDS: PIPERACILLIN/TAZOB 2.25 GM 2.25 GM in DEXTROSE 5%-WATER - 50 ML IVPB SCH ×3 (03:03→17:31)
[2021-11-17] MEDS: LEVOTHYROXINE NA 25 MCG TABLET (FP) PO SCH (06:46)
[2021-11-17] MEDS: METOCLOPRAMIDE HCL 10 MG TABLET (FP) PO SCH ×3 (07:26→17:32)
[2021-11-17] MEDS: ENOXAPARIN NA (PORCINE) 40 MG/0.4 ML DISP.SYRIN SQ SCH (10:14)
[2021-11-17] MEDS: metoPROLOL SUCCINATE 25 MG TAB.SR.24H (FP) PO SCH (10:14)
[2021-11-17] MEDS: LISINOPRIL 5 MG TABLET PO SCH (10:15)
[2021-11-17] MEDS: BACITRACIN 15 GM TUBE TOPICAL OINTMENT TP SCH (16:56)
[2021-11-17] MEDS: ATORVASTATIN CA 40 MG TABLET (FP) PO SCH (21:42)
[2021-11-18] MEDS ORDERED: PIPERACILLIN/TAZOBACTAM 2.25 GM VIAL IVPB ONE ×3 (00:56→17:02)
[2021-11-18] MEDS ORDERED: DEXTROSE 5%-WATER - 50 ML IVPB ONE ×3 (00:57→17:02)
[2021-11-18] MEDS: PIPERACILLIN/TAZOB 2.25 GM 2.25 GM in DEXTROSE 5%-WATER - 50 ML IVPB SCH ×3 (01:17→17:04)
[2021-11-18] MEDS: LEVOTHYROXINE NA 25 MCG TABLET (FP) PO SCH (06:29)
[2021-11-18] MEDS: METOCLOPRAMIDE HCL 10 MG TABLET (FP) PO SCH ×3 (06:29→16:57)
[2021-11-18] MEDS: ENOXAPARIN NA (PORCINE) 40 MG/0.4 ML DISP.SYRIN SQ SCH (10:29)
[2021-11-18] MEDS: LISINOPRIL 5 MG TABLET PO SCH (10:30)
[2021-11-18] MEDS: BACITRACIN 15 GM TUBE TOPICAL OINTMENT TP SCH (10:56)
[2021-11-18] MEDS: metoPROLOL SUCCINATE 25 MG TAB.SR.24H (FP) PO SCH (11:58)
[2021-11-18 12:02] LABS: ALBUMIN 1.9 g/dl (3.4-5.0); BLOOD UREA NITROGEN 21.6 mg/dL (7-18)
[2021-11-18 12:04] LABS: CREATININE 1.5 mg/dL (0.55-1.3)
[2021-11-18 12:05] LABS: BILIRUBIN,TOTAL 0.7 mg/dL (0.2-1); TOT PROT 6.4 g/dl (6.4-8.2)
[2021-11-18 12:11] LABS: HEMATOCRIT 25.3 % (32.4-45.2); HEMOGLOBIN 8.2 GM/dL (10.7-15.3); MCH 25.1 pg (25.7-33.7); MCHC 32.5 g/dl (32.0-36.0); MEAN CELL VOLUME 77.3 fl (80-96); PLATELET COUNT 299 10^3/uL (134-434); RBC 3.27 M/mm3 (3.60-5.2); RDW 20.9 % (11.6-15.6); WHITE BLOOD COUNT 15.1 K/mm3 (4.0-10.0)
[2021-11-18 14:13] LABS: ANISOCYTOSIS 3+; MACROCYTOSIS 1+; OVALOCYTE 1+; PLATELET ESTIMATE NORMAL; SICKELED CELLS 1+; TARGET CELLS 3+
[2021-11-18] MEDS: ATORVASTATIN CA 40 MG TABLET (FP) PO SCH (21:46)
[2021-11-19] MEDS ORDERED: DEXTROSE 5%-WATER - 0 ML IVPB ONE (00:23)
[2021-11-19] MEDS ORDERED: PIPERACILLIN/TAZOBACTAM 2.25 GM VIAL IVPB ONE ×4 (00:23→16:52)
[2021-11-19] MEDS: PIPERACILLIN/TAZOB 2.25 GM 2.25 GM in DEXTROSE 5%-WATER - 50 ML IVPB SCH ×3 (01:00→17:18)
[2021-11-19] MEDS: METOCLOPRAMIDE HCL 10 MG TABLET (FP) PO SCH ×3 (06:13→16:41)
[2021-11-19] MEDS: LEVOTHYROXINE NA 25 MCG TABLET (FP) PO SCH (06:14)
[2021-11-19] MEDS ORDERED: DEXTROSE 5%-WATER - 50 ML IVPB ONE ×3 (08:52→16:52)
[2021-11-19 09:36] LABS: HEMATOCRIT 24.4 % (32.4-45.2); HEMOGLOBIN 7.8 GM/dL (10.7-15.3); MCH 24.8 pg (25.7-33.7); MCHC 32.1 g/dl (32.0-36.0); MEAN CELL VOLUME 77.4 fl (80-96); MEAN PLT VOLUME 9.4 fl (7.5-11.1); PLATELET COUNT 340 10^3/uL (134-434); RBC 3.15 M/mm3 (3.60-5.2); RDW 21.3 % (11.6-15.6); WHITE BLOOD COUNT 14.3 K/mm3 (4.0-10.0)
[2021-11-19 10:04] LABS: CALCIUM 8.4 mg/dL (8.5-10.1)
[2021-11-19 10:05] LABS: BLOOD UREA NITROGEN 18.1 mg/dL (7-18)
[2021-11-19 10:08] LABS: CREATININE 1.4 mg/dL (0.55-1.3)
[2021-11-19 10:09] LABS: BILIRUBIN,TOTAL 0.7 mg/dL (0.2-1); TOT PROT 6.5 g/dl (6.4-8.2)
[2021-11-19] MEDS: MULTIVIT-MINERALS ORAL LIQUID GT SCH (10:30)
[2021-11-19] MEDS: ASCORBIC ACID 250 MG TABLET (FP) GT SCH (10:30)
[2021-11-19] MEDS: LISINOPRIL 5 MG TABLET PO SCH (10:30)
[2021-11-19] MEDS: metoPROLOL SUCCINATE 25 MG TAB.SR.24H (FP) PO SCH (10:30)
[2021-11-19] MEDS: ENOXAPARIN NA (PORCINE) 40 MG/0.4 ML DISP.SYRIN SQ SCH (10:30)
[2021-11-19 11:44] LABS: ANISOCYTOSIS 3+; MACROCYTOSIS 1+; OVALOCYTE 1+; PLATELET ESTIMATE NORMAL; SICKELED CELLS 2+; TARGET CELLS 3+
[2021-11-19] MEDS: BACITRACIN 15 GM TUBE TOPICAL OINTMENT TP SCH (12:03)
[2021-11-19] MEDS: ATORVASTATIN CA 40 MG TABLET (FP) PO SCH (22:37)
[2021-11-20] MEDS ORDERED: DEXTROSE 5%-WATER - 50 ML IVPB ONE ×2 (01:34→10:24)
[2021-11-20] MEDS ORDERED: PIPERACILLIN/TAZOBACTAM 2.25 GM VIAL IVPB ONE ×2 (01:34→10:23)
[2021-11-20] MEDS: PIPERACILLIN/TAZOB 2.25 GM 2.25 GM in DEXTROSE 5%-WATER - 50 ML IVPB SCH ×2 (01:36→10:36)
[2021-11-20] MEDS: LEVOTHYROXINE NA 25 MCG TABLET (FP) PO SCH (06:27)
[2021-11-20] MEDS: METOCLOPRAMIDE HCL 10 MG TABLET (FP) PO SCH ×3 (06:27→16:22)
[2021-11-20 09:13] LABS: HEMATOCRIT 23.8 % (32.4-45.2); HEMOGLOBIN 7.9 GM/dL (10.7-15.3); MCH 25.5 pg (25.7-33.7); MCHC 33.1 g/dl (32.0-36.0); MEAN CELL VOLUME 76.9 fl (80-96); MEAN PLT VOLUME 9.2 fl (7.5-11.1); PLATELET COUNT 311 10^3/uL (134-434); RDW 21.8 % (11.6-15.6); WHITE BLOOD COUNT 14.8 K/mm3 (4.0-10.0)
[2021-11-20 09:53] LABS: CALCIUM 7.9 mg/dL (8.5-10.1)
[2021-11-20 09:54] LABS: ALBUMIN 1.9 g/dl (3.4-5.0); BLOOD UREA NITROGEN 17.1 mg/dL (7-18)
[2021-11-20 09:55] LABS: BILIRUBIN,TOTAL 0.9 mg/dL (0.2-1); TOT PROT 6.2 g/dl (6.4-8.2)
[2021-11-20 09:57] LABS: CREATININE 1.2 mg/dL (0.55-1.3)
[2021-11-20 10:00] LABS: ANISOCYTOSIS 2+; MACROCYTOSIS 0; PLATELET ESTIMATE NORMAL; TARGET CELLS 1+
[2021-11-20] MEDS: LISINOPRIL 5 MG TABLET PO SCH (10:36)
[2021-11-20] MEDS: ENOXAPARIN NA (PORCINE) 40 MG/0.4 ML DISP.SYRIN SQ SCH (10:36)
[2021-11-20] MEDS: metoPROLOL SUCCINATE 25 MG TAB.SR.24H (FP) PO SCH (10:37)
[2021-11-20] MEDS: MULTIVIT-MINERALS ORAL LIQUID GT SCH (10:39)
[2021-11-20] MEDS: ASCORBIC ACID 250 MG TABLET (FP) GT SCH (10:39)
[2021-11-20] MEDS: BACITRACIN 15 GM TUBE TOPICAL OINTMENT TP SCH (10:39)
[2021-11-20] MEDS ORDERED: METOPROLOL TARTRATE 25 MG TABLET (FP) PO SCH (11:15)
[2021-11-20] MEDS: METOPROLOL TARTRATE 25 MG TABLET (FP) PEG SCH ×2 (11:22→21:37)
[2021-11-20] MEDS: FERROUS SO4 300 MG/5 ML ORAL SOLN UNIT DOSE CUPS PEG SCH ×2 (11:22→17:37)
[2021-11-20] MEDS: ATORVASTATIN CA 40 MG TABLET (FP) PEG SCH (21:37)
[2021-11-21] MEDS: METOCLOPRAMIDE HCL 10 MG TABLET (FP) PO SCH ×3 (06:48→17:18)
[2021-11-21] MEDS: LEVOTHYROXINE NA 25 MCG TABLET (FP) PEG SCH (06:48)
[2021-11-21] MEDS: FERROUS SO4 300 MG/5 ML ORAL SOLN UNIT DOSE CUPS PEG SCH ×3 (09:07→17:19)
[2021-11-21] MEDS: ENOXAPARIN NA (PORCINE) 40 MG/0.4 ML DISP.SYRIN SQ SCH (09:07)
[2021-11-21] MEDS: BACITRACIN 15 GM TUBE TOPICAL OINTMENT TP SCH (09:12)
[2021-11-21] MEDS: FOLIC ACID 1 MG TABLET (FP) PEG SCH (09:12)
[2021-11-21] MEDS: MULTIVIT-MINERALS ORAL LIQUID GT SCH (09:12)
[2021-11-21] MEDS: METOPROLOL TARTRATE 25 MG TABLET (FP) PEG SCH ×2 (09:13→21:24)
[2021-11-21] MEDS: POLYETHYLENE GLYCOL (HEALTHYLAX) 3350 17 GM PACKET PEG SCH (09:13)
[2021-11-21] MEDS: LISINOPRIL 5 MG TABLET PEG SCH (09:13)
[2021-11-21] MEDS: ASCORBIC ACID 250 MG TABLET (FP) GT SCH (09:14)
[2021-11-21] MEDS ORDERED: metoPROLOL SUCCINATE 25 MG TAB.SR.24H (FP) PO SCH (10:00)
[2021-11-21 11:49] LABS: HEMATOCRIT 25.7 % (32.4-45.2); HEMOGLOBIN 8.3 GM/dL (10.7-15.3); MCH 25.3 pg (25.7-33.7); MCHC 32.4 g/dl (32.0-36.0); MEAN CELL VOLUME 78.1 fl (80-96); MEAN PLT VOLUME 9.8 fl (7.5-11.1); PLATELET COUNT 325 10^3/uL (134-434); RBC 3.29 M/mm3 (3.60-5.2); RDW 22.1 % (11.6-15.6); WHITE BLOOD COUNT 14.4 K/mm3 (4.0-10.0)
[2021-11-21 11:52] LABS: BASO % 0.7 % (0-2.0); HEMOGLOBIN 8.4 GM/dL (10.7-15.3); MCH 25.3 pg (25.7-33.7); MCHC 32.2 g/dl (32.0-36.0); MEAN CELL VOLUME 78.6 fl (80-96); MEAN PLT VOLUME 9.7 fl (7.5-11.1); MONO % 9.8 % (3.8-10.2); NEUT % 62.5 % (42.8-82.8); PLATELET COUNT 321 10^3/uL (134-434); RBC 3.31 M/mm3 (3.60-5.2); RDW 22.3 % (11.6-15.6); WHITE BLOOD COUNT 14.1 K/mm3 (4.0-10.0)
[2021-11-21 12:08] LABS: ALBUMIN 1.9 g/dl (3.4-5.0); BLOOD UREA NITROGEN 17.7 mg/dL (7-18)
[2021-11-21 12:11] LABS: TOT PROT 6.4 g/dl (6.4-8.2)
[2021-11-21 12:13] LABS: CREATININE 1.1 mg/dL (0.55-1.3)
[2021-11-21 12:16] LABS: BILIRUBIN,TOTAL 0.5 mg/dL (0.2-1)
[2021-11-21] MEDS: ATORVASTATIN CA 40 MG TABLET (FP) PEG SCH (21:24)
[2021-11-22] MEDS: LEVOTHYROXINE NA 25 MCG TABLET (FP) PEG SCH (06:15)
[2021-11-22] MEDS: METOCLOPRAMIDE HCL 10 MG TABLET (FP) PO SCH ×3 (06:15→16:55)
[2021-11-22] MEDS: POLYETHYLENE GLYCOL (HEALTHYLAX) 3350 17 GM PACKET PEG SCH (10:38)
[2021-11-22] MEDS: ENOXAPARIN NA (PORCINE) 40 MG/0.4 ML DISP.SYRIN SQ SCH (10:38)
[2021-11-22] MEDS: LISINOPRIL 5 MG TABLET PEG SCH (10:38)
[2021-11-22] MEDS: FOLIC ACID 1 MG TABLET (FP) PEG SCH (10:39)
[2021-11-22] MEDS: ASCORBIC ACID 250 MG TABLET (FP) GT SCH (10:44)
[2021-11-22] MEDS: MULTIVIT-MINERALS ORAL LIQUID GT SCH (10:44)
[2021-11-22] MEDS: BACITRACIN 15 GM TUBE TOPICAL OINTMENT TP SCH (10:44)
[2021-11-22] MEDS: FERROUS SO4 300 MG/5 ML ORAL SOLN UNIT DOSE CUPS PEG SCH ×3 (10:44→16:56)
[2021-11-22] MEDS: METOPROLOL TARTRATE 25 MG TABLET (FP) PEG SCH (10:46)
[2021-11-22 18:30] VITALS: BP 135/87; PULSE 106; TEMP 98
== END 2021-11-22 18:45 | DRG 871 ==
LOC: JER 11:24 → JERBED 12:20 → J6S 11-04 00:57
PROVIDERS: ADMIT Internal Medicine; ATTEND Internal Medicine
PROC: 0DH68UZ Insertion of Feeding Device into Stomach, Via Natural or Artificial Opening Endoscopic (ICD-10-PCS; principal; 2021-11-16 14:00)
DX: A41.89 Other specified sepsis (principal); J18.9 Pneumonia, unspecified organism; E87.2 Acidosis; N17.9 Acute kidney failure, unspecified; E46 Unspecified protein-calorie malnutrition; R47.01 Aphasia; J90 Pleural effusion, not elsewhere classified; N39.0 Urinary tract infection, site not specified; E03.9 Hypothyroidism, unspecified; F01.50 Vascular dementia, unspecified severity, without behavioral disturbance, psychotic disturbance, mood disturbance, and anxiety; E78.5 Hyperlipidemia, unspecified; M54.50 Low back pain, unspecified; D57.3 Sickle-cell trait; D72.829 Elevated white blood cell count, unspecified; R62.7 Adult failure to thrive; Z68.22 Body mass index [BMI] 22.0-22.9, adult; B96.1 Klebsiella pneumoniae [K. pneumoniae] as the cause of diseases classified elsewhere; R09.02 Hypoxemia; G47.00 Insomnia, unspecified; M54.12 Radiculopathy, cervical region; E87.6 Hypokalemia; M41.80 Other forms of scoliosis, site unspecified; Z86.73 Personal history of transient ischemic attack (TIA), and cerebral infarction without residual deficits
CPT/HCPCS: 36415; 70450-TC; 70551-TC; 71045-TC-FY; 71250-TC; 76775-TC; 80053; 80061; 81003; 82803; 83605; 83735; 84100; 84443; 84484; 85025; 85027; 85610; 85730; 87040; 87086; 87186; 87804; 87807; 93005; 93010; 93880-TC; 99285-25; C9803; J0131; U0003; U0005

== ENCOUNTER 2022-10-05 16:38 | Inpatient (IN) | payer OTHER ==
[2022-10-05] MEDS ORDERED: ACETAMINOPHEN 1000 MG/100 ML BAG IVPB ONE (21:19)
[2022-10-05 21:58] LABS: VENOUS BASE EXCESS -0.8 mmol/L (-2-2); VENOUS O2 SATURATION 84.2 % (70-80); VENOUS PH 7.41 (7.310-7.410)
[2022-10-05 22:01] LABS: HEMATOCRIT 33.3 % (32.4-45.2); HEMOGLOBIN 11.4 GM/dL (10.7-15.3); MCH 25.7 pg (25.7-33.7); MCHC 34.1 g/dl (32.0-36.0); MEAN CELL VOLUME 75.2 fl (80-96); MEAN PLT VOLUME 9.6 fl (7.5-11.1); PLATELET COUNT 264 10^3/uL (134-434); RBC 4.43 M/mm3 (3.60-5.2); RDW 18.8 % (11.6-15.6); WHITE BLOOD COUNT 21.7 K/mm3 (4.0-10.0)
[2022-10-05 22:07] LABS: INR 1.28 (0.83-1.09); PROTHROMBIN TIME (PATIENT) 14.7 SEC (9.7-13.0)
[2022-10-05 22:10] LABS: ACTIVATED PTT 29.8 SECONDS (25.2-36.5)
[2022-10-05 22:23] LABS: ALBUMIN 3.5 g/dl (3.4-5.0); BLOOD UREA NITROGEN 13.1 mg/dL (7-18)
[2022-10-05 22:26] LABS: CREATININE 1.4 mg/dL (0.55-1.3)
[2022-10-05 22:28] LABS: BILIRUBIN,TOTAL 7.8 mg/dL (0.2-1); TOT PROT 8.6 g/dl (6.4-8.2)
[2022-10-05] MEDS ORDERED: CEFTRIAXONE 1 GM in DEXTROSE 5%-WATER - 100 ML IVPB ONE (22:30)
[2022-10-05 22:35] LABS: ANISOCYTOSIS 0; MACROCYTOSIS 0; TARGET CELLS 2+
[2022-10-05] MEDS ORDERED: CEFTRIAXONE 1 GM/50 ML BAG ONE (22:39)
[2022-10-05] MEDS ORDERED: ACETAMINOPHEN INJECTION 100 ML IVPB ONE (22:39)
[2022-10-05 22:47] LABS: CALCIUM 9.9 mg/dL (8.5-10.1)
[2022-10-05 23:02] LABS: EPI CELLS 4 /uL (0-25.1); HYALINE CASTS 1 /uL (0-3.1); URINE APPEARANCE CLEAR; URINE BILIRUBIN 3+ (NEGATIVE); URINE COLOR DK YELLOW; URINE GLUCOSE (UA) NEGATIVE (NEGATIVE); URINE KETONE TRACE (NEGATIVE); URINE LEUK ESTERASE TRACE (NEGATIVE); URINE NITRITE POSITIVE (NEGATIVE); URINE PROTEIN 3+ (NEGATIVE); URINE RBC 14 /uL (0-23.9); URINE UROBILINOGEN 4.0 E.U/dl mg/dL (0.2-1.0); URINE WBC 15 /uL (0-25.8)
[2022-10-05 23:12] LABS: URINE BACTERIA 61 /uL (0-1359)
[2022-10-05 23:33] LABS: BILIRUBIN,DIRECT 6.3 mg/dL (0.0-0.2)
[2022-10-06] MEDS ORDERED: ONDANSETRON 4 MG/2 ML VIAL IVPB ONE (00:31)
[2022-10-06] MEDS ORDERED: ONDANSETRON 4 MG/2 ML VIAL ONE (00:45)
[2022-10-06] MEDS ORDERED: ACETAMINOPHEN 1000 MG/100 ML BAG IVPB PRN (03:10)
[2022-10-06] MEDS ORDERED: ONDANSETRON 4 MG/2 ML VIAL IVPUSH PRN (03:10)
[2022-10-06] MEDS ORDERED: PIPERACILLIN/TAZOB 3.375 GM 3.375 GM in DEXTROSE 5%-WATER - 50 ML IVPB SCH (07:00)
[2022-10-06 08:21] LABS: BASO % 0.3 % (0-2.0); EOS % 0.1 % (0-4.5); HEMATOCRIT 30.4 % (32.4-45.2); LYMPH % 9.6 % (8-40); MCH 25.1 pg (25.7-33.7); MCHC 32.8 g/dl (32.0-36.0); MEAN CELL VOLUME 76.6 fl (80-96); MEAN PLT VOLUME 9.6 fl (7.5-11.1); MONO % 7.4 % (3.8-10.2); NEUT % 82.6 % (42.8-82.8); PLATELET COUNT 209 10^3/uL (134-434); RBC 3.97 M/mm3 (3.60-5.2); RDW 18.6 % (11.6-15.6); WHITE BLOOD COUNT 17.8 K/mm3 (4.0-10.0)
[2022-10-06] MEDS ORDERED: PIPERACILLIN/TAZOB 3.375 GM 3.375 GM/50 ML BAG IVPB ONE (09:37)
[2022-10-06] MEDS: DEXTROSE 5%-0.45% SALINE 1,000 ML IV SCH (09:45)
[2022-10-06 09:55] LABS: CALCIUM 9.2 mg/dL (8.5-10.1)
[2022-10-06 09:57] LABS: ALBUMIN 2.9 g/dl (3.4-5.0)
[2022-10-06 09:59] LABS: CREATININE 1.2 mg/dL (0.55-1.3)
[2022-10-06 10:01] LABS: TOT PROT 7.4 g/dl (6.4-8.2)
[2022-10-06 10:03] LABS: BILIRUBIN,TOTAL 7.4 mg/dL (0.2-1)
[2022-10-06] MEDS ORDERED: HEPARIN NA (PORCINE) 5,000 UNITS/ML 1ML VIAL ONE (12:49)
[2022-10-06 15:49] VITALS: BMI 25.1
[2022-10-06] MEDS: PIPERACILLIN/TAZOB 3.375 GM 3.375 GM in DEXTROSE 5%-WATER - 50 ML IVPB SCH (18:09)
[2022-10-06] MEDS: HEPARIN NA (PORCINE) 5,000 UNITS/ML 1ML VIAL SQ SCH ×2 (22:26)
[2022-10-07] MEDS: DEXTROSE 5%-0.45% SALINE 1,000 ML IV SCH ×2 (01:44→17:27)
[2022-10-07] MEDS: PIPERACILLIN/TAZOB 3.375 GM 3.375 GM in DEXTROSE 5%-WATER - 50 ML IVPB SCH ×3 (01:45→17:28)
[2022-10-07 09:09] LABS: BASO % 0.8 % (0-2.0); EOS % 5.1 % (0-4.5); HEMATOCRIT 30.1 % (32.4-45.2); HEMOGLOBIN 9.9 GM/dL (10.7-15.3); LYMPH % 19.9 % (8-40); MCHC 32.8 g/dl (32.0-36.0); MEAN CELL VOLUME 76.3 fl (80-96); MEAN PLT VOLUME 9.9 fl (7.5-11.1); MONO % 10.5 % (3.8-10.2); NEUT % 63.7 % (42.8-82.8); PLATELET COUNT 205 10^3/uL (134-434); RBC 3.94 M/mm3 (3.60-5.2); WHITE BLOOD COUNT 12.2 K/mm3 (4.0-10.0)
[2022-10-07] MEDS: HEPARIN NA (PORCINE) 5,000 UNITS/ML 1ML VIAL SQ SCH ×2 (09:44→22:47)
[2022-10-07 10:12] LABS: ALBUMIN 2.7 g/dl (3.4-5.0); CALCIUM 9.3 mg/dL (8.5-10.1)
[2022-10-07 10:14] LABS: BLOOD UREA NITROGEN 10.8 mg/dL (7-18)
[2022-10-07 10:15] LABS: CREATININE 1.3 mg/dL (0.55-1.3)
[2022-10-07 10:17] LABS: BILIRUBIN,TOTAL 3.6 mg/dL (0.2-1); TOT PROT 7.1 g/dl (6.4-8.2)
[2022-10-08] MEDS: PIPERACILLIN/TAZOB 3.375 GM 3.375 GM in DEXTROSE 5%-WATER - 50 ML IVPB SCH ×3 (01:02→17:50)
[2022-10-08] MEDS: HEPARIN NA (PORCINE) 5,000 UNITS/ML 1ML VIAL SQ SCH ×2 (10:58→22:24)
[2022-10-08] MEDS: DEXTROSE 5%-0.45% SALINE 1,000 ML IV SCH (11:16)
[2022-10-08 12:31] LABS: BASO % 1.2 % (0-2.0); EOS % 8.3 % (0-4.5); HEMATOCRIT 30.4 % (32.4-45.2); MCH 25.2 pg (25.7-33.7); MEAN CELL VOLUME 76.5 fl (80-96); MONO % 11.5 % (3.8-10.2); PLATELET COUNT 226 10^3/uL (134-434); RBC 3.97 M/mm3 (3.60-5.2); RDW 18.8 % (11.6-15.6); WHITE BLOOD COUNT 13.1 K/mm3 (4.0-10.0)
[2022-10-08 13:08] LABS: ALBUMIN 2.7 g/dl (3.4-5.0)
[2022-10-08 13:09] LABS: BLOOD UREA NITROGEN 7.4 mg/dL (7-18)
[2022-10-08 13:14] LABS: TOT PROT 6.9 g/dl (6.4-8.2)
[2022-10-08 13:17] LABS: BILIRUBIN,TOTAL 2.9 mg/dL (0.2-1)
[2022-10-08] MEDS: KCL 10 MEQ IVPB 10 MEQ/100 ML INFUS.BAG IVPB SCH ×2 (22:24→23:43)
[2022-10-09] MEDS: KCL 10 MEQ IVPB 10 MEQ/100 ML INFUS.BAG IVPB SCH (01:17)
[2022-10-09] MEDS: PIPERACILLIN/TAZOB 3.375 GM 3.375 GM in DEXTROSE 5%-WATER - 50 ML IVPB SCH ×3 (02:17→18:21)
[2022-10-09] MEDS: DEXTROSE 5%-0.45% SALINE 1,000 ML IV SCH ×2 (05:52→10:08)
[2022-10-09 08:49] LABS: BASO % 1.3 % (0-2.0); HEMATOCRIT 32.8 % (32.4-45.2); HEMOGLOBIN 10.8 GM/dL (10.7-15.3); LYMPH % 28.7 % (8-40); MCH 25.2 pg (25.7-33.7); MCHC 32.9 g/dl (32.0-36.0); MEAN CELL VOLUME 76.7 fl (80-96); MONO % 11.1 % (3.8-10.2); NEUT % 48.9 % (42.8-82.8); PLATELET COUNT 226 10^3/uL (134-434); RBC 4.28 M/mm3 (3.60-5.2); RDW 18.8 % (11.6-15.6); WHITE BLOOD COUNT 11.1 K/mm3 (4.0-10.0)
[2022-10-09 09:01] LABS: CALCIUM 8.7 mg/dL (8.5-10.1)
[2022-10-09 09:02] LABS: ALBUMIN 2.5 g/dl (3.4-5.0); BLOOD UREA NITROGEN 7.3 mg/dL (7-18)
[2022-10-09 09:05] LABS: CREATININE 1.1 mg/dL (0.55-1.3)
[2022-10-09 09:07] LABS: BILIRUBIN,TOTAL 2.4 mg/dL (0.2-1); TOT PROT 6.7 g/dl (6.4-8.2)
[2022-10-09] MEDS: HEPARIN NA (PORCINE) 5,000 UNITS/ML 1ML VIAL SQ SCH ×2 (10:09→22:07)
[2022-10-10] MEDS: PIPERACILLIN/TAZOB 3.375 GM 3.375 GM in DEXTROSE 5%-WATER - 50 ML IVPB SCH ×3 (01:04→17:51)
[2022-10-10] MEDS: DEXTROSE 5%-0.45% SALINE 1,000 ML IV SCH ×3 (01:05→16:32)
[2022-10-10 10:42] LABS: BASO % 0.8 % (0-2.0); EOS % 10.1 % (0-4.5); HEMATOCRIT 33.1 % (32.4-45.2); LYMPH % 31.1 % (8-40); MCH 25.2 pg (25.7-33.7); MCHC 33.2 g/dl (32.0-36.0); MEAN CELL VOLUME 75.9 fl (80-96); MEAN PLT VOLUME 9.9 fl (7.5-11.1); MONO % 10.3 % (3.8-10.2); NEUT % 47.7 % (42.8-82.8); PLATELET COUNT 253 10^3/uL (134-434); RBC 4.35 M/mm3 (3.60-5.2); RDW 18.8 % (11.6-15.6); WHITE BLOOD COUNT 12.3 K/mm3 (4.0-10.0)
[2022-10-10 10:59] LABS: CALCIUM 8.7 mg/dL (8.5-10.1)
[2022-10-10 11:00] LABS: ALBUMIN 2.6 g/dl (3.4-5.0); BLOOD UREA NITROGEN 4.6 mg/dL (7-18)
[2022-10-10 11:02] LABS: CREATININE 1.1 mg/dL (0.55-1.3)
[2022-10-10 11:04] LABS: BILIRUBIN,TOTAL 2.3 mg/dL (0.2-1)
[2022-10-10] MEDS: HEPARIN NA (PORCINE) 5,000 UNITS/ML 1ML VIAL SQ SCH ×2 (11:52→21:35)
[2022-10-10] MEDS ORDERED: POTASSIUM CHLORIDE TABS 20 MEQ TABLET.ER (FP) PO ONE (18:27)
[2022-10-11] MEDS: PIPERACILLIN/TAZOB 3.375 GM 3.375 GM in DEXTROSE 5%-WATER - 50 ML IVPB SCH ×3 (01:11→17:18)
[2022-10-11] MEDS: DEXTROSE 5%-0.45% SALINE 1,000 ML IV SCH ×2 (06:13→21:46)
[2022-10-11 09:21] LABS: BASO % 0.9 % (0-2.0); EOS % 10.3 % (0-4.5); HEMATOCRIT 36.2 % (32.4-45.2); HEMOGLOBIN 11.7 GM/dL (10.7-15.3); LYMPH % 32.9 % (8-40); MCH 25.3 pg (25.7-33.7); MCHC 32.3 g/dl (32.0-36.0); MEAN CELL VOLUME 78.3 fl (80-96); MEAN PLT VOLUME 9.7 fl (7.5-11.1); NEUT % 44.9 % (42.8-82.8); PLATELET COUNT 248 10^3/uL (134-434); RBC 4.63 M/mm3 (3.60-5.2); RDW 19.3 % (11.6-15.6); WHITE BLOOD COUNT 11.8 K/mm3 (4.0-10.0)
[2022-10-11] MEDS: HEPARIN NA (PORCINE) 5,000 UNITS/ML 1ML VIAL SQ SCH ×2 (09:34→21:45)
[2022-10-11 09:49] LABS: CALCIUM 8.6 mg/dL (8.5-10.1)
[2022-10-11 09:50] LABS: ALBUMIN 2.6 g/dl (3.4-5.0); CREATININE 1.1 mg/dL (0.55-1.3)
[2022-10-11 09:52] LABS: BILIRUBIN,TOTAL 1.7 mg/dL (0.2-1); TOT PROT 6.9 g/dl (6.4-8.2)
[2022-10-11] MEDS ORDERED: POTASSIUM CHLORIDE TABS 20 MEQ TABLET.ER (FP) PO ONE (12:43)
[2022-10-12] MEDS: PIPERACILLIN/TAZOB 3.375 GM 3.375 GM in DEXTROSE 5%-WATER - 50 ML IVPB SCH ×3 (02:35→17:04)
[2022-10-12] MEDS: HEPARIN NA (PORCINE) 5,000 UNITS/ML 1ML VIAL SQ SCH ×2 (09:53→22:09)
[2022-10-12] MEDS: DEXTROSE 5%-0.45% SALINE 1,000 ML IV SCH (09:53)
[2022-10-12 11:46] VITALS: RESP 18
[2022-10-13] MEDS: PIPERACILLIN/TAZOB 3.375 GM 3.375 GM in DEXTROSE 5%-WATER - 50 ML IVPB SCH ×3 (01:33→17:03)
[2022-10-13] MEDS: DEXTROSE 5%-0.45% SALINE 1,000 ML IV SCH ×3 (06:15→21:47)
[2022-10-13] MEDS: METOPROLOL TARTRATE 25 MG TABLET (FP) PO SCH ×2 (10:08→21:47)
[2022-10-13] MEDS: CLOPIDOGREL BISULFATE 75 MG TABLET (FP) PO SCH (10:08)
[2022-10-13] MEDS: HEPARIN NA (PORCINE) 5,000 UNITS/ML 1ML VIAL SQ SCH ×2 (10:08→21:47)
[2022-10-13] MEDS: ASPIRIN COATED 81 MG TABLET.EC PO SCH (10:08)
[2022-10-13] MEDS: LISINOPRIL 5 MG TABLET PO SCH (10:08)
[2022-10-13 10:17] LABS: BASO % 0.9 % (0-2.0); EOS % 6.9 % (0-4.5); HEMATOCRIT 32.4 % (32.4-45.2); HEMOGLOBIN 10.5 GM/dL (10.7-15.3); LYMPH % 21.3 % (8-40); MCH 25.1 pg (25.7-33.7); MCHC 32.3 g/dl (32.0-36.0); MEAN CELL VOLUME 77.7 fl (80-96); MEAN PLT VOLUME 9.6 fl (7.5-11.1); MONO % 11.1 % (3.8-10.2); NEUT % 59.8 % (42.8-82.8); PLATELET COUNT 299 10^3/uL (134-434); RBC 4.17 M/mm3 (3.60-5.2); RDW 19.7 % (11.6-15.6); WHITE BLOOD COUNT 12.4 K/mm3 (4.0-10.0)
[2022-10-13 10:35] LABS: CHLORIDE 108 mmol/L (98-107); SODIUM 140 mmol/L (136-145)
[2022-10-13 10:39] LABS: CALCIUM 8.6 mg/dL (8.5-10.1)
[2022-10-13 10:40] LABS: ALBUMIN 2.8 g/dl (3.4-5.0); ANION GAP 9 MMOL/L (8-16); CO2 24 mmol/L (21-32); GLUCOSE,RANDOM 189 mg/dL (74-106)
[2022-10-13 10:43] LABS: CREATININE 1.1 mg/dL (0.55-1.3); SGOT/AST 29 U/L (15-37); SGPT/ALT 33 U/L (13-61)
[2022-10-13 10:44] LABS: BILIRUBIN,TOTAL 1.6 mg/dL (0.2-1)
[2022-10-13 10:46] LABS: ALK PHOS 110 U/L (45-117)
[2022-10-13 10:52] LABS: BLOOD UREA NITROGEN 2.3 mg/dL (7-18)
[2022-10-13] MEDS: guaiFENesin 200 MG/10 ML 10 ML UNIT-DOSE CUPS PO PRN (17:03)
[2022-10-13] MEDS ORDERED: POTASSIUM CHLORIDE TABS 20 MEQ TABLET.ER (FP) PO ONE (18:15)
[2022-10-13] MEDS: ATORVASTATIN CA 40 MG TABLET (FP) PO SCH (21:47)
[2022-10-14] MEDS: PIPERACILLIN/TAZOB 3.375 GM 3.375 GM in DEXTROSE 5%-WATER - 50 ML IVPB SCH ×3 (01:13→18:22)
[2022-10-14] MEDS: LEVOTHYROXINE NA 25 MCG TABLET (FP) PO SCH (06:46)
[2022-10-14] MEDS: DEXTROSE 5%-0.45% SALINE 1,000 ML IV SCH ×2 (06:47→22:02)
[2022-10-14 09:48] LABS: BASO % 0.5 % (0-2.0); EOS % 0.6 % (0-4.5); HEMATOCRIT 30.3 % (32.4-45.2); HEMOGLOBIN 10.1 GM/dL (10.7-15.3); LYMPH % 12.1 % (8-40); MCH 25.2 pg (25.7-33.7); MCHC 33.2 g/dl (32.0-36.0); MEAN CELL VOLUME 76.1 fl (80-96); MEAN PLT VOLUME 9.2 fl (7.5-11.1); MONO % 14.4 % (3.8-10.2); NEUT % 72.4 % (42.8-82.8); PLATELET COUNT 298 10^3/uL (134-434); RBC 3.98 M/mm3 (3.60-5.2); RDW 19.8 % (11.6-15.6); WHITE BLOOD COUNT 13.6 K/mm3 (4.0-10.0)
[2022-10-14 10:12] LABS: ALBUMIN 2.6 g/dl (3.4-5.0); BLOOD UREA NITROGEN 4.4 mg/dL (7-18); CALCIUM 8.5 mg/dL (8.5-10.1)
[2022-10-14 10:15] LABS: CREATININE 1.4 mg/dL (0.55-1.3)
[2022-10-14 10:17] LABS: BILIRUBIN,TOTAL 1.4 mg/dL (0.2-1); TOT PROT 6.8 g/dl (6.4-8.2)
[2022-10-14] MEDS: METOPROLOL TARTRATE 25 MG TABLET (FP) PO SCH ×3 (11:01→22:11)
[2022-10-14] MEDS: CLOPIDOGREL BISULFATE 75 MG TABLET (FP) PO SCH (11:02)
[2022-10-14] MEDS: LISINOPRIL 5 MG TABLET PO SCH (11:02)
[2022-10-14] MEDS: HEPARIN NA (PORCINE) 5,000 UNITS/ML 1ML VIAL SQ SCH ×2 (11:02→22:03)
[2022-10-14] MEDS: ASPIRIN COATED 81 MG TABLET.EC PO SCH (11:02)
[2022-10-14] MEDS ORDERED: POTASSIUM CHLORIDE TABS 20 MEQ TABLET.ER (FP) PO ONE (12:07)
[2022-10-14] MEDS ORDERED: DEXTROSE 5%-0.45% SALINE 1,000 ML IV SCH (14:15)
[2022-10-14] MEDS ORDERED: ACETAMINOPHEN 1000 MG/100 ML BAG IVPB PRN (14:15)
[2022-10-14] MEDS ORDERED: REMDESIVIR 200 MG in SODIUM CHLORIDE 250 ML IVPB ONE (16:00)
[2022-10-14] MEDS: ATORVASTATIN CA 40 MG TABLET (FP) PO SCH (22:03)
[2022-10-15] MEDS: PIPERACILLIN/TAZOB 3.375 GM 3.375 GM in DEXTROSE 5%-WATER - 50 ML IVPB SCH (01:06)
[2022-10-15] MEDS: LEVOTHYROXINE NA 25 MCG TABLET (FP) PO SCH (06:53)
[2022-10-15] MEDS: LISINOPRIL 5 MG TABLET PO SCH (10:42)
[2022-10-15] MEDS: ASPIRIN COATED 81 MG TABLET.EC PO SCH (10:42)
[2022-10-15] MEDS: CLOPIDOGREL BISULFATE 75 MG TABLET (FP) PO SCH (10:42)
[2022-10-15] MEDS: HEPARIN NA (PORCINE) 5,000 UNITS/ML 1ML VIAL SQ SCH ×2 (10:42→21:43)
[2022-10-15] MEDS: METOPROLOL TARTRATE 25 MG TABLET (FP) PO SCH ×2 (10:43→21:43)
[2022-10-15] MEDS: REMDESIVIR 100 MG in SODIUM CHLORIDE 250 ML IVPB SCH (16:05)
[2022-10-15] MEDS: KCL 10 MEQ IVPB 10 MEQ/100 ML INFUS.BAG IVPB SCH ×3 (17:54→21:44)
[2022-10-15] MEDS: DEXTROSE 5%-0.45% SALINE 1,000 ML IV SCH (19:17)
[2022-10-15 20:37] LABS: BASO % 0.8 % (0-2.0); EOS % 1.4 % (0-4.5); HEMATOCRIT 30.6 % (32.4-45.2); HEMOGLOBIN 10.1 GM/dL (10.7-15.3); LYMPH % 14.4 % (8-40); MCH 25.3 pg (25.7-33.7); MCHC 33.1 g/dl (32.0-36.0); MEAN CELL VOLUME 76.3 fl (80-96); MEAN PLT VOLUME 9.2 fl (7.5-11.1); MONO % 10.4 % (3.8-10.2); PLATELET COUNT 312 10^3/uL (134-434); RBC 4.01 M/mm3 (3.60-5.2); RDW 19.9 % (11.6-15.6); WHITE BLOOD COUNT 19.6 K/mm3 (4.0-10.0)
[2022-10-15 20:58] LABS: CALCIUM 8.3 mg/dL (8.5-10.1)
[2022-10-15 20:59] LABS: ALBUMIN 2.4 g/dl (3.4-5.0); BLOOD UREA NITROGEN 5.8 mg/dL (7-18)
[2022-10-15 21:02] LABS: CREATININE 1.1 mg/dL (0.55-1.3)
[2022-10-15 21:03] LABS: BILIRUBIN,TOTAL 1.2 mg/dL (0.2-1); TOT PROT 6.6 g/dl (6.4-8.2)
[2022-10-15] MEDS: ATORVASTATIN CA 40 MG TABLET (FP) PO SCH (21:42)
[2022-10-15] MEDS: guaiFENesin 200 MG/10 ML 10 ML UNIT-DOSE CUPS PO PRN (21:42)
[2022-10-16] MEDS: LEVOTHYROXINE NA 25 MCG TABLET (FP) PO SCH (06:31)
[2022-10-16] MEDS: DEXTROSE 5%-0.45% SALINE 1,000 ML IV SCH (06:48)
[2022-10-16] MEDS: HEPARIN NA (PORCINE) 5,000 UNITS/ML 1ML VIAL SQ SCH ×2 (10:18→22:02)
[2022-10-16] MEDS: LISINOPRIL 5 MG TABLET PO SCH (10:19)
[2022-10-16] MEDS: CLOPIDOGREL BISULFATE 75 MG TABLET (FP) PO SCH (10:19)
[2022-10-16] MEDS: METOPROLOL TARTRATE 25 MG TABLET (FP) PO SCH ×2 (10:19→22:01)
[2022-10-16] MEDS: ASPIRIN COATED 81 MG TABLET.EC PO SCH (10:19)
[2022-10-16 10:58] LABS: BASO % 1.1 % (0-2.0); EOS % 4.2 % (0-4.5); HEMATOCRIT 29.3 % (32.4-45.2); HEMOGLOBIN 9.9 GM/dL (10.7-15.3); LYMPH % 23.4 % (8-40); MCH 25.8 pg (25.7-33.7); MCHC 33.7 g/dl (32.0-36.0); MEAN CELL VOLUME 76.6 fl (80-96); MEAN PLT VOLUME 9.4 fl (7.5-11.1); MONO % 11.1 % (3.8-10.2); NEUT % 60.2 % (42.8-82.8); PLATELET COUNT 301 10^3/uL (134-434); RBC 3.82 M/mm3 (3.60-5.2); RDW 19.9 % (11.6-15.6); WHITE BLOOD COUNT 15.8 K/mm3 (4.0-10.0)
[2022-10-16 11:28] LABS: CALCIUM 8.1 mg/dL (8.5-10.1)
[2022-10-16 11:29] LABS: ALBUMIN 2.3 g/dl (3.4-5.0); BLOOD UREA NITROGEN 5.3 mg/dL (7-18)
[2022-10-16 11:33] LABS: BILIRUBIN,TOTAL 1.9 mg/dL (0.2-1); CREATININE 0.9 mg/dL (0.55-1.3)
[2022-10-16 11:34] LABS: TOT PROT 6.3 g/dl (6.4-8.2)
[2022-10-16] MEDS ORDERED: POTASSIUM CHLORIDE TABS 20 MEQ TABLET.ER (FP) PO ONE (14:24)
[2022-10-16] MEDS: KCL 10 MEQ IVPB 10 MEQ/100 ML INFUS.BAG IVPB SCH ×3 (14:38→17:01)
[2022-10-16] MEDS ORDERED: KCL 10 MEQ IVPB 10 MEQ/100 ML INFUS.BAG IVPB SCH (17:45)
[2022-10-16] MEDS: REMDESIVIR 100 MG in SODIUM CHLORIDE 250 ML IVPB SCH (18:34)
[2022-10-16] MEDS: ATORVASTATIN CA 40 MG TABLET (FP) PO SCH (22:02)
[2022-10-17] MEDS: LEVOTHYROXINE NA 25 MCG TABLET (FP) PO SCH (06:17)
[2022-10-17] MEDS: HEPARIN NA (PORCINE) 5,000 UNITS/ML 1ML VIAL SQ SCH ×2 (09:02→22:44)
[2022-10-17] MEDS: CLOPIDOGREL BISULFATE 75 MG TABLET (FP) PO SCH (09:02)
[2022-10-17] MEDS: ASPIRIN COATED 81 MG TABLET.EC PO SCH (09:02)
[2022-10-17] MEDS: METOPROLOL TARTRATE 25 MG TABLET (FP) PO SCH ×2 (09:02→22:44)
[2022-10-17] MEDS: LISINOPRIL 5 MG TABLET PO SCH (09:02)
[2022-10-17 10:42] LABS: BASO % 0.9 % (0-2.0); EOS % 7.9 % (0-4.5); HEMATOCRIT 29.9 % (32.4-45.2); LYMPH % 22.2 % (8-40); MCH 24.7 pg (25.7-33.7); MCHC 33.6 g/dl (32.0-36.0); MEAN CELL VOLUME 73.4 fl (80-96); MEAN PLT VOLUME 10.1 fl (7.5-11.1); MONO % 9.7 % (3.8-10.2); NEUT % 59.3 % (42.8-82.8); PLATELET COUNT 495 10^3/uL (134-434); RBC 4.07 M/mm3 (3.60-5.2); RDW 22.3 % (11.6-15.6); WHITE BLOOD COUNT 13.7 K/mm3 (4.0-10.0)
[2022-10-17 11:05] LABS: CHLORIDE 108 mmol/L (98-107); SODIUM 132 mmol/L (136-145)
[2022-10-17 11:15] LABS: GLUCOSE,RANDOM 79 mg/dL (74-106)
[2022-10-17 11:16] LABS: ALBUMIN 2.1 g/dl (3.4-5.0); BLOOD UREA NITROGEN 5.2 mg/dL (7-18); CO2 22 mmol/L (21-32)
[2022-10-17 11:19] LABS: CREATININE 0.9 mg/dL (0.55-1.3)
[2022-10-17 11:20] LABS: BILIRUBIN,TOTAL 1.4 mg/dL (0.2-1); TOT PROT 7.5 g/dl (6.4-8.2)
[2022-10-17 11:21] LABS: ALK PHOS 83 U/L (45-117)
[2022-10-17 11:22] LABS: ANION GAP 2 MMOL/L (8-16); SGOT/AST 223 U/L (15-37); SGPT/ALT 37 U/L (13-61)
[2022-10-17 11:59] LABS: ANISOCYTOSIS 3+; MACROCYTOSIS 1+; TARGET CELLS 3+
[2022-10-17 15:07] LABS: ALBUMIN 2.4 g/dl (3.4-5.0); BLOOD UREA NITROGEN 5.7 mg/dL (7-18); CALCIUM 8.7 mg/dL (8.5-10.1)
[2022-10-17 15:12] LABS: BILIRUBIN,TOTAL 1.4 mg/dL (0.2-1); TOT PROT 6.6 g/dl (6.4-8.2)
[2022-10-17] MEDS: ATORVASTATIN CA 40 MG TABLET (FP) PO SCH (22:44)
[2022-10-18] MEDS: LEVOTHYROXINE NA 25 MCG TABLET (FP) PO SCH (06:21)
[2022-10-18] MEDS: HEPARIN NA (PORCINE) 5,000 UNITS/ML 1ML VIAL SQ SCH (09:17)
[2022-10-18] MEDS: METOPROLOL TARTRATE 25 MG TABLET (FP) PO SCH (09:17)
[2022-10-18] MEDS: ASPIRIN COATED 81 MG TABLET.EC PO SCH (09:17)
[2022-10-18] MEDS: LISINOPRIL 5 MG TABLET PO SCH (09:17)
[2022-10-18] MEDS: CLOPIDOGREL BISULFATE 75 MG TABLET (FP) PO SCH (09:18)
[2022-10-18 14:42] VITALS: BP 151/72; PULSE 97; TEMP 98.6
== END 2022-10-18 16:56 | disposition home health service (06) | DRG 444 ==
LOC: JER 16:38 → JERBED 10-06 02:43 → INTOOBSV 10-06 02:43 → J6S 10-06 14:13 → OBSVTOIN 10-10 14:25 → J6S 10-14 02:09
PROVIDERS: ADMIT Internal Medicine; ATTEND Internal Medicine
DX: K83.09 Other cholangitis (principal); E43 Unspecified severe protein-calorie malnutrition; U07.1 COVID-19; I69.351 Hemiplegia and hemiparesis following cerebral infarction affecting right dominant side; I50.22 Chronic systolic (congestive) heart failure; N39.0 Urinary tract infection, site not specified; N17.9 Acute kidney failure, unspecified; E46 Unspecified protein-calorie malnutrition; I13.0 Hypertensive heart and chronic kidney disease with heart failure and stage 1 through stage 4 chronic kidney disease, or unspecified chronic kidney disease; R50.9 Fever, unspecified; E78.5 Hyperlipidemia, unspecified; E03.9 Hypothyroidism, unspecified; D72.829 Elevated white blood cell count, unspecified; M54.50 Low back pain, unspecified; Z68.25 Body mass index [BMI] 25.0-25.9, adult; R62.7 Adult failure to thrive; E80.6 Other disorders of bilirubin metabolism; R00.0 Tachycardia, unspecified; D64.9 Anemia, unspecified; D57.3 Sickle-cell trait; R74.8 Abnormal levels of other serum enzymes; B95.2 Enterococcus as the cause of diseases classified elsewhere; E87.6 Hypokalemia; R80.9 Proteinuria, unspecified; E11.22 Type 2 diabetes mellitus with diabetic chronic kidney disease; N18.9 Chronic kidney disease, unspecified; Z74.01 Bed confinement status; Z93.1 Gastrostomy status
CPT/HCPCS: 0241U-QW; 36415; 71045-TC-FY; 74177-TC; 76705-TC; 78226-TC; 80048; 80053; 80307; 81003; 82248; 82728; 82803; 83516; 83605; 84484; 85025; 85379; 85610; 85730; 86038; 86140; 86705; 86708; 86850; 86900; 86901; 87040; 87086; 87186; 87340; 87517; 93005; 93010; 93306-TC; 97116-GP; 97162-GP; 99285-25; A9537; C9399; C9803-CS; G0378; J1644; Q9967; U0003; U0005

== ENCOUNTER 2022-11-06 18:39 | Emergency (ER) | payer OTHER ==
[2022-11-06 18:53] VITALS: BP 0/0; BMI 19.1
[2022-11-06] MEDS ORDERED: CALCIUM GLUCONATE 10% - 1,000 MG/10 ML VIAL ONE (19:00)
[2022-11-06] MEDS ORDERED: CALCIUM CHLORIDE 1 GM/10 ML *DISP.SYRIN ONE (19:00)
== END 2022-11-06 21:21 | disposition expired ==
LOC: JER 18:39
CPT/HCPCS: 99285-25